=== PATIENT | male | born 1945 | race Caucasian/White ===

== ENCOUNTER 2021-01-09 09:03 | Day surgery (SDC) | payer OTHER, SELFPAY ==
[2020-12-18 08:20] VITALS: BMI 30.1
--- NOTE | 2021-01-09 09:25 | HP.PCM_ITS ---
History and Physical Date of Admission: 01/09/21 Intake Visit Reasons: CSCOPE Chief Complaint: c-scope, hx polyps Certified Optician Required: No Is patient in pain?: No Allergies No Known Allergies Allergy (Verified 12/18/20 08:16) Medications cyclobenzaprine 5 mg PO TID PRN #10 tablet 10/20/15 [Rx Confirmed 12/18/20] metoprolol tartrate 12.5 mg PO BID 10/20/15 [History Confirmed 12/18/20] potassium chloride [K-Dur] 20 meq PO DAILY 10/20/15 [History Confirmed 12/18/20] alogliptin 25 mg tablet 25 mg PO DAILY 12/18/20 [History Confirmed 12/18/20] atorvastatin 80 mg tablet 80 mg PO QHS 12/18/20 [History Confirmed 12/18/20] empagliflozin 25 mg tablet 25 mg PO QAM 12/18/20 [History Confirmed 12/18/20] glipizide 5 mg tablet 10 mg PO BIDAC tab 12/18/20 [History Confirmed 12/18/20] lisinopril 20 mg-hydrochlorothiazide 12.5 mg tablet 1 tab PO DAILY 12/18/20 [History Confirmed 12/18/20] sulfacetamide sodium 10 % shampoo ea TOPICAL 12/18/20 [History Confirmed 12/18/20] PFSH Medical History (Updated 12/18/20 @ 08:[address] Harlan Foster MD) Allergic rhinitis B12 deficiency Back pain CKD (chronic kidney disease), stage II Hyperlipidemia Neuropathy Rosacea Vitamin D deficiency Surgical History (Updated 12/18/20 @ 08:14 by Courtney Phan) History of cholecystectomy History of colonoscopy (~05/2017) Family History (Updated 12/18/20 @ 08:15 by Courtney Phan) Brother Diabetes Cancer CHF (congestive heart failure) Social History Smoking Status: Never smoker HPI HPI HPI: IBIS GREEN, is a 75 M who presents to the office today for surgical consultation because of a personal history of colon polyps. 75-year-old gentleman. He has had previous colonoscopies performed via the [facility]. On this occasion he prefers to have his procedure performed locally. He states that on previous colonoscopies he has had colonic polyps. He thinks that on the most recent endoscopy that he had polyps but that were not removed. He is on a low-dose aspirin but no other anticoagulation. He otherwise is enjoying a good quality of life. He denies any cardiac disease or pulmonary disease. He does have diabetes but is noninsulin requiring. I have evidence of a previous colonoscopy May 17, 2017 performed in [facility] at the [facility]. A single bleeding smooth broad-based polyp found in the rectum was removed by snare cautery. Clips were applied to control bleeding. Diverticulosis was identified. The patient denies family history of colon cancer ROS General General: Yes weight change; No appetite, fatigue, colon cancer, breast cancer or weakness HEENT HEENT: No difficulty swallowing, eye injury, eye surgery, swollen glands or hoarseness Endo Endocrine: Yes diabetes mellitus; No thyroid disease, thyroid cancer, Hair loss, heat intolerance or cold intolerance Musc Musculoskeletal: Yes back problems; No arthritis, rheumatoid arthritis, gout or joint pain Cardio Cardiovascular: Yes high blood pressure; No murmur, pacemaker, heart disease, atrial fibrillation, heart attack, heart stent, palpitations, shortness of breat with exertion or chest pain Psych Psychiatric: No depression, anxiety or hearing voices Resp Respiratory: No shortness of breath, No sleep apnea, No cough, No COPD, No asthma, No emphysema and No wheezing Gastro Gastrointestinal: No abdominal pain, No nausea or vomiting, No diarrhea, No constipation, No blood in stool, No acid reflux, No hemorrhoids, No ulcers, No gallbladder problem and No black,tarry stools Yannick Hematologic: No blood thinners, No blood disorders, No bleeding, No anemia and No blood clots Neuro Neurologic: No weakness Exam Const General: cooperative, healthy appearing, comfortable and no acute distress Nutritional Appearance: average body habitus Orientation: awake [facility] Head: normal to inspection Eyes General: appearance normal, both eyes and all related structures Neck Neck: normal visual inspection Resp Effort & Inspection: normal respiratory effort Auscultation: clear to auscultation bilaterally Cardio Rate: regular rate Rhythm: regular rhythm GI Palpation: soft and no hepatosplenomegaly Auscultation: normal bowel sounds Musc Cervical Spine: normal cervical lordosis Neuro General: patient alert and patient awake Extrem General: no calf tenderness bilaterally Psych Appearance: grossly normal Thought Process: normal COVID (Procedure Consent) Procedure Criteria Procedure Criteria: Yes Elective The surgeon/proceduralist and patient have discussed in detail the risk of exposure to and/or potential harm posed by the COVID-19 virus with having a surgery/procedure at this time versus the risk of delaying the surgery/procedure. It is not possible to know either the risk of delaying the surgery or procedure or chance of getting an infection with perfect accuracy, but a joint decision was made between the patient and the surgeon/proceduralist to proceed at this time with the scheduled surgery/procedure as indicated on the consent form. Assessment and Plan Assessment and Plan (1) Personal history of colonic polyps: Status: Acute Plan Details Additional Comments: 75-year-old gentleman who was kindly referred from the [facility] for consideration of surveillance colonoscopy because of his personal history of colon polyps. As noted his most recent colonoscopy was July 2016 where a rectal polyp was removed with snare and clip application. I propose for him a colonoscopy with possible biopsy or polypectomy as indicated. He is aware of the technique, benefit, risk, alternatives. He has had an opportunity to ask and have questions answered. We will schedule procedure at his discretion. 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 Mehdi Foster,II Copy: [facility] Harlan Foster M.D., F.A.C.S. I have re-examined the patient. There are no clinical changes since date of exam.
[2021-01-09 09:27] VITALS: BP 145/85; PULSE 58; RESP 16; TEMP 36.4; O2SAT 99; BMI 32.5
[2021-01-09] MEDS: Lactated Ringers 1,000 ML 100 ML IV (09:48)
[2021-01-09 10:31] LABS: Bedside Glucose 221 mg/dL (70-110)
[2021-01-09 11:00] VITALS: BP 116/80; BP 145/85; PULSE 59; RESP 18; TEMP 36.5; O2SAT 97
--- NOTE | 2021-01-09 11:03 | OP.CCLET_ITS ---
01/09/2021 [facility] Re : Colonoscopy procedure for [facility] This procedure was performed on Saturday, January 09, 2021. My impressions and recommendations are as follows: Impressions : - Hemorrhoids found on perianal exam. - Diverticulosis in the sigmoid colon. - The examination was otherwise normal. - No specimens collected. Recommendations : - Discharge patient to home. - Resume previous diet. - Continue present medications. - Repeat colonoscopy is not recommended due to current age (66 years or older) for screening purposes. My findings are described in the full procedure note, which is enclosed. If I can be of further assistance, please feel free to contact me at Doctor phone number(s): Work: . Sincerely, Harlan Foster MD 01/09/2021 11:02:16 AM This report has been signed electronically.
--- NOTE | 2021-01-09 11:03 | OP.COLON_ITS ---
Patient Name: Sylvester Woodward Procedure Date: 01/09/2021 10:32 AM Date of : 1945 Age: 75 Procedure: Colonoscopy Indications: High risk colon cancer surveillance: Personal history of colonic polyps Providers: Harlan Foster MD Referring MD: Harlan Foster MD Medicines: See the Anesthesia note for documentation of the administered medications Patient Profile: Last Colonoscopy: May 2017. Complications: No immediate complications. Procedure: Pre-Anesthesia Assessment: - Prior to the procedure, a History and Physical was performed, and patient medications and allergies were reviewed. The patient's tolerance of previous anesthesia was also reviewed. The risks and benefits of the procedure and the sedation options and risks were discussed with the patient. All questions were answered, and informed consent was obtained. Prior Anticoagulants: The patient has taken no previous anticoagulant or antiplatelet agents. ASA Grade Assessment: II - A patient with mild systemic disease. After reviewing the risks and benefits, the patient was deemed in satisfactory condition to undergo the procedure. After I obtained informed consent, the scope was passed under direct vision. Throughout the procedure, the patient's blood pressure, pulse, and oxygen saturations were monitored continuously. The Colonoscope was introduced through the anus and advanced to the cecum, identified by appendiceal orifice and ileocecal valve. The colonoscopy was performed without difficulty. The patient tolerated the procedure well. The quality of the bowel preparation was good. The ileocecal valve and the appendiceal orifice were photographed. Scope In: 10:42:58 AM Scope Withdrawal Time 0 hours 8 minutes 14 seconds Scope Out: 10:56:51 AM Total Procedure Duration Time 0 hours 13 minutes 53 seconds Findings: Hemorrhoids were found on perianal exam. Scattered diverticula were found in the sigmoid colon. The exam was otherwise without abnormality. Impression: - Hemorrhoids found on perianal exam. - Diverticulosis in the sigmoid colon. - The examination was otherwise normal. - No specimens collected. Recommendation: - Discharge patient to home. - Resume previous diet. - Continue present medications. - Repeat colonoscopy is not recommended due to current age (66 years or older) for screening purposes. Procedure Code(s): --- Professional --- 27740, Colonoscopy, flexible; diagnostic, including collection of specimen(s) by brushing or washing, when performed (separate procedure) Diagnosis Code(s): --- Professional --- Z86.010, Personal history of colonic polyps K64.9, Unspecified hemorrhoids K57.30, Diverticulosis of large intestine without perforation or abscess without bleeding CPT copyright 2017 [employer]. All rights reserved. The codes documented in this report are preliminary and upon unix administrator review may be revised to meet current compliance requirements. Harlan Foster MD 01/09/2021 11:02:16 AM This report has been signed electronically. Number of Addenda: 0 Note Initiated On: 01/09/2021 10:32 AM
[2021-01-09 11:05] VITALS: BP 116/79; BP 145/85; PULSE 60; RESP 18; O2SAT 97
[2021-01-09 11:10] VITALS: BP 125/83; BP 145/85; PULSE 58; RESP 18; O2SAT 98
[2021-01-09 11:15] VITALS: BP 120/83; BP 125/87; BP 145/85; PULSE 57; PULSE 61; RESP 18; TEMP 36.8; O2SAT 97; O2SAT 98
[2021-01-09 11:39] VITALS: BP 145/85
== END 2021-01-09 11:43 ==
LOC: EN 09:03 → AC 09:12
PROVIDERS: Referring Provider Surgery; Visit Provider Surgery
PROC: 0DJD8ZZ Inspection of Lower Intestinal Tract, Via Natural or Artificial Opening Endoscopic (ICD-10-PCS; CPT 45378; principal; 2021-01-09 10:25)
DX: Z12.11 Encounter for screening for malignant neoplasm of colon (principal); K57.30 Diverticulosis of large intestine without perforation or abscess without bleeding; K64.9 Unspecified hemorrhoids; Z87.19 Personal history of other diseases of the digestive system; I12.9 Hypertensive chronic kidney disease with stage 1 through stage 4 chronic kidney disease, or unspecified chronic kidney disease; E11.22 Type 2 diabetes mellitus with diabetic chronic kidney disease; N18.2 Chronic kidney disease, stage 2 (mild); E78.5 Hyperlipidemia, unspecified; Z79.899 Other long term (current) drug therapy
CPT/HCPCS: 45378; 82962; 87426; C9803; J7120; J2405

== ENCOUNTER → 2022-10-05 | Outpatient (CLI) | payer OTHER, SELFPAY ==
--- NOTE | 2022-10-05 08:55 | US_ITS ---
STUDY: ABDOMINAL ULTRASOUND - ELASTOGRAPHY REASON FOR VISIT: Male, 77 years old. Fatty infiltration of the liver. TECHNIQUE: Liver stiffness measurements were obtained on a Senscient RS 85 ultrasound machine using a CA 1-7 probe following the SRU guidelines. 3 measurements were obtained using a 2-D-SWE method. TheIQR/M was 12% suggesting a quality data set. TECHNICAL QUALITY: Adequate. COMPARISON: Comparison is made with prior study done earlier today. FINDINGS: Liver: Fatty infiltration of the liver. Median liver stiffness measured 11 kPa. 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 Electronically Signed: Giuseppe Edmonds MD at 10:17 EDT ,
== END | disposition home or self-care (01) ==
LOC: US 08:52
DX: R94.5 Abnormal results of liver function studies (principal)
CPT/HCPCS: 76705; 76981

== ENCOUNTER → 2023-08-31 | Outpatient (CLI) | payer OTHER, SELFPAY ==
--- NOTE | 2023-08-31 08:44 | US_ITS ---
STUDY: ABDOMINAL ULTRASOUND - RIGHT UPPER QUADRANT REASON FOR VISIT: Male, 78 years old FATTY LIVER TECHNIQUE: Ultrasound evaluation of the right upper quadrant was performed with real-time and static merino-scale imaging. TECHNICAL QUALITY: Adequate. COMPARISON: Comparison is made with prior study of October 05, 2022. FINDINGS: Liver: The liver is enlarged and measures 19.7 cm. There is increased echogenicity consistent with fatty infiltration. The bile ducts are within normal limits. There is hepatic color flow. The direction of portal flow is hepatopetal. There is no demonstrated mass lesion. Gallbladder: The patient is status post cholecystectomy. Common Bile Duct (C.B.D.): The common bile duct measures 6 mm. Pancreas: Normal size of the head, body and tail of the pancreas. There is normal echogenicity of the pancreas. There is no demonstrated pancreatic mass or cyst. Right Kidney: Normal size of the right kidney. The right kidney measures 11.3 cm x 4.9 cm x 5.5 cm. Normal renal cortex. The right cortex measures 1.3 cm. There is no demonstrated renal mass or cyst. There is no right hydronephrosis. US/Liver IMPRESSION: Hepatomegaly and fatty infiltration of the liver. The patient status post cholecystectomy. Electronically Signed: Giuseppe Edmonds MD at 10:36 EST ,
--- OUTSIDE RECORDS SUMMARY | 2023-08-31 09:04 | XMS RPT_ITS | CCD ---
Author Name Unknown Address [address] [place] [address] Organization [facility] Care Team Providers Care Maintenance Worker Municipal Name Role Phone No, Pcp (Historical) Primary Care Provider SOLANGE Hermosillo Attending Unavailable Allergies Allergy Classification Reported Allergen(s) Allergy Type Date of Onset Reaction(s) Facility (1 source) [facility] [Other] Propensity to adverse reactions 5 Vomiting [facility] Work Phone: (1 source) OTHER; Translations: [OTHER] Propensity to adverse reactions (disorder) [address] [place] [address] Repository Medications Current Medications Medication Drug Class(es) Dates Sig (Normalized) Sig (Original) doxycycline monohydrate 100 mg oral tablet (1 source) Tetracycline-clas s Drug Start: 03-30-2023 End: 04-09-2023 take 1 tablet by mouth twice daily doxycycline monohydrate 100 mg tablet Indications: Skin lesion Take 1 tablet by mouth twice daily for 10 days. 20 tablet 0 03/30/2023 04/09/2023 Active Completed/Discontinued Medications Medication Drug Class(es) Dates Sig (Normalized) Sig (Original) aspirin 81 mg chewable tablet (1 source) Platelet Aggregation Inhibitor, Nonsteroidal Anti-inflammatory Drug Start: 10-30-2004 take 1 tablet by mouth once daily CHRISTIANA CHIL[employer] ASPIRIN 81 MG ORAL CHEW Take one(1) tablet daily. 0 10/30/2004 Active Problems Problem Classification Problem Date Documented Da te Episodic/Chronic Other skin disorders (1 source) Skin lesion; Translations: [Disorder of the skin and subcutaneous tissue, unspecified] 03-30-2023 Episodic Superficial injury; contusion (1 source) Tick bite; Translations: [Insect bite (nonvenomous), right hip, initial encounter] 09-20-2023 Episodic Results Test Name Value Interpretation Reference Range Facil ity Vital Signs Date Time Vital Sign Value Performing Clinician Marcos mcdonald 03-30-2023 08:28-0400 Body temperature 98.01 [degF] Solange Baker NET DEVELOPMENT MANAGER.WIRELESS FIELD TECHNICIAN Work Phone: [facility] 03-30-2023 08:28-0400 Body weight 84.01 kg Solange Baker NET DEVELOPMENT MANAGER.WIRELESS FIELD TECHNICIAN Work Phone: [facility] 03-30-2023 08:28-0400 Diastolic blood pressure 80 mm[Hg] Solange Baker NET DEVELOPMENT MANAGER.WIRELESS FIELD TECHNICIAN Work Phone: [facility] 03-30-2023 08:28-0400 Heart rate 70 /min Solange Baker NET DEVELOPMENT MANAGER.WIRELESS FIELD TECHNICIAN Work Phone: [facility] 03-30-2023 08:28-0400 Respiratory rate 18 /min Solange Baker NET DEVELOPMENT MANAGER.WIRELESS FIELD TECHNICIAN Work Phone: [facility] 03-30-2023 08:28-0400 SaO2% (BldA) [Mass fraction] 95 % Solange Baker NET DEVELOPMENT MANAGER.WIRELESS FIELD TECHNICIAN Work Phone: [facility] 03-30-2023 08:28-0400 Systolic blood pressure 130 mm[Hg] Solange Baker NET DEVELOPMENT MANAGER.WIRELESS FIELD TECHNICIAN Work Phone: [facility] Encounters Encounter Date Encounter Type Care Provider Facility Start: 03-30-2023 End: 03-30-2023 ambulatory SOLANGE KING Facility:[facility] Start: 03-30-2023 End: 03-30-2023 Patient encounter procedure Solange Baker APRN.WIRELESS FIELD TECHNICIAN Work Phone: [facility] Plan of Treatment Date Care Activity Detail Author Start: 03-11-2023 Influenza vaccination Influenza Vacc ine (#1) [facility] Start: 07-11-2022 Advance Directive Discussion Advance Directive Discussion [facility] Start: 07-11-2022 Depression Assessment Depression Ass essment [facility] Start: 06-28-2019 Urine microalbumin profile DTaP,Tdap,Td Vaccine (2 - Td or Tdap) [facility] Start: 2010 Pneumococcal Vaccine : 65+ (1 - PCV) Pneumococcal Vaccine: 65+ (1 - PCV) [facility] Start: 1995 Shingrix Vaccine (1 of 2) Shingrix V accine (1 of 2) [facility] Start: 1990 Diabetes Screening Diabetes Screenin g [facility] Start: 1963 Hepatitis C Screening Hepatitis C Sc pa [facility] Start: 1945 Covid-19 Vaccine (#1) Covid-19 Vacci ne (#1) [facility] Immunizations Immunization Date Immunization Notes Care Provider Fa sheri 07-27-2017 influenza virus vaccine, unspecified formulation Solange Baker APRN.WIRELESS FIELD TECHNICIAN Work Phone: [facility] 06-28-2009 tetanus toxoid, redu lewis diphtheria toxoid, and acellular pertussis vaccine, adsorbed Solange Baker APRN.WIRELESS FIELD TECHNICIAN Work Phone: [facility] Work Phone: Payers Date Payer Category Payer Unknown [facility] [employer] O [id number] 2021-Present [phone] [address] [place] [address] O [id number] 2021 Unknown [id number] Social History Date Type Detail Facility Start: 03-30-2023 [facility] End: 10-30-1964 History of tobacco use Current smoker [facility] End: 10-30-1964 History of tobacco use Cigarette Smoker [facility] Start: 03-30-2023 Alcohol intake Current non-dr manager diversity of alcohol (finding) [facility] Start: 03-30-2023 History of Social function [facility] Start: 03-30-2023 Tobacco use panel [facility] Start: 1945 Sex Assigned At Not on file C [facility] Progress note 03-30-2023 Note Date & Type Note Facility 03-30-2023 Note HNO ID: [id number] Author: Solange Baker APRN.WIRELESS FIELD TECHNICIAN Service: ? Author Type: Nurse Practitioner Type: Progress Notes Filed: 03/30/2023 9:01 AM Note Text: Subjective HPI HPI Ibis Woodward is a 77 year old male who presents today for CC of tick bite, lesion, pain. This started 1 day ago, tick was attached for possible 3 days. Has tried nothing for relief. Symptoms are worsened by nothing. Risk factors was recently out in [place]. Denies cp/sob, fever, body aches, flu like symptoms. .Patient presents with: Tick Bite: Right back of thigh x 1 day No past medical history on file. No past surgical history on file. ALLERGIES [employer] [Other] MEDICATIONS semaglutide (OZEMPIC) 2 mg/dose (8 mg/3 mL) pen injector Inject 2 mg subcutaneously one time a week. METFORMIN HCL (METFORMIN ORAL) Take 2 Caps-Full by mouth twice daily. MULTIVITAMIN ORAL TAB Take one(1) tablet daily. CHRI[employer]IANA [employer]IL[employer]ENS ASPIRIN 81 MG ORAL CHEW Take one(1) tablet daily. ZESTRIL 10 MG ORAL TAB Take one(1) tablet twice daily. LOPRESSOR 50 MG ORAL TAB Take 25mg (half of a 50mg tablet) twice daily. GENPRIL 200 MG ORAL TAB as necessary NASACORT AQ 55 MCG/ACTUATION NASL SPRA Take daily at bedtime. No family history on file. Social History Tobacco Use Smoking status: Former Types: Cigarettes Quit date: 10/30/1964 Years since quittin.4 Substance Use Topics Alcohol use: No ROS Objective Blood pressure 130/80, pulse 70, temperature 36.7 ?C (98 ?F), resp. rate 18, weight 84 kg (185 lb 3.2 oz), SpO2 95 %. Physical Exam Constitutional: General: He is not in acute distress. Appearance: He is not toxic-appearing or diaphoretic. HENT: Head: Normocephalic and atraumatic. Cardiovascular: Rate and Rhythm: Normal rate and regular rhythm. Heart sounds: Normal heart sounds, S1 normal and S2 normal. Pulmonary: Effort: Pulmonary effort is normal. Breath sounds: Normal breath sounds. Skin: Neurological: Mental Status: He is alert and oriented to person, place, and time. Gait: Gait is intact. ASSESSMENT/PLAN: 1. Tick bite of right hip, initial encounter - ICD9: 916.4, E906.4, ICD10: S70.261A, W57.XXXA (primary diagnosis) 2. Skin lesion - ICD9: 709.9, ICD10: L98.9 Cover with doxy F/u with pcp for any new s/s. Urgent f/u for severe s/s. - DOXYCYCLINE MONOHYDRATE 100 MG TABLET Solange Baker APRN.CNP [facility] History of Present illness Narrative 03-30-2023 Solange Baker APRN.YUDITH - 03/30/2023 8:36 AM EDT Note Date & Type Note Facility 03-30-2023 History of Presen t illness Narrative Images from the original note were not included. Subjective HPI HPI Ibis Woodward is a 77 year old male who presents today for CC of tick bite, lesion, pain. This started 1 day ago, tick was attached for possible 3 days. Has tried nothing for relief. Symptoms are worsened by nothing. Risk factors was recently out in [place]. Denies cp/sob, fever, body aches, flu like symptoms. .Patient presents with: Tick Bite: Right back of thigh x 1 day No past medical history on file. No past surgical history on file. ALLERGIES [employer]o [Other] MEDICATIONS semaglutide (OZEMPIC) 2 mg/dose (8 mg/3 mL) pen injector Inject 2 mg subcutaneously one time a week. METFORMIN HCL (METFORMIN ORAL) Take 2 Caps-Full by mouth twice daily. MULTIVITAMIN ORAL TAB Take one(1) tablet daily. CHRISTIANA [employer]ILDRENS ASPIRIN 81 MG ORAL CHEW Take one(1) tablet daily. ZESTRIL 10 MG ORAL TAB Take one(1) tablet twice daily. LOPRESSOR 50 MG ORAL TAB Take 25mg (half of a 50mg tablet) twice daily. GENPRIL 200 MG ORAL TAB as necessary NASACORT AQ 55 MCG/ACTUATION NASL SPRA Take daily at bedtime. No family history on file. Social History Tobacco Use Smoking status: Former Types: Cigarettes Quit date: 10/30/1964 Years since quittin.4 Substance Use Topics Alcohol use: No ROS Objective Blood pressure 130/80, pulse 70, temperature 36.7 C (98 F), resp. rate 18, weight 84 kg (185 lb 3.2 oz), SpO2 95 %. Physical Exam Constitutional: General: He is not in acute distress. Appearance: He is not toxic-appearing or diaphoretic. HENT: Head: Normocephalic and atraumatic. Cardiovascular: Rate and Rhythm: Normal rate and regular rhythm. Heart sounds: Normal heart sounds, S1 normal and S2 normal. Pulmonary: Effort: Pulmonary effort is normal. Breath sounds: Normal breath sounds. Skin: Neurological: Mental Status: He is alert and oriented to person, place, and time. Gait: Gait is intact. ASSESSMENT/PLAN: 1. Tick bite of right hip, initial encounter - ICD9: 916.4, E906.4, ICD10: S70.261A, W57.XXXA (primary diagnosis) 2. Skin lesion - ICD9: 709.9, ICD10: L98.9 Cover with doxy F/u with pcp for any new s/s. Urgent f/u for severe s/s. - DOXYCYCLINE MONOHYDRATE 100 MG TABLET Solange Baker APRN.WIRELESS FIELD TECHNICIAN documented in this encounter [facility] Evaluation note Note Date & Type Note Facility documented in this encounter [facility] Summary Purpose Family History No Family History Records Found Advance Directives No Advanced Directives Records Found Additional Source Comments Source Comments (unrecognize d section and content) In the event this informatio n is protected by the Federal Confidentiality of Alcohol and Drug Abuse Patient Records regulations: The Federal rules restrict any use of the information to criminally investigate or prosecute any alcohol or drug abuse patient.[facility] Reason for Visit (unrecogniz ed section and content) Care Teams (unrecognized sec tion and content) (unrecognized sect ion and content) No Status Records Found INFORMATION SOURCE (unrecogn ized section and content) FOR RECORDS PERTAINING TO PATIENTS WHO ARE OR HAVE BEEN ENROLLED IN A CHEMICAL DEPENDENCY/SUBSTANCEABUSE PROGRAM, SOME INFORMATION MAY BE OMITTED. This clinical summary was aggregated from multiple sources. Caution should be exercised in using it in the provision of clinical care. This summary normalizes information from multiple sources, and as a consequence, information in this document may materially change the coding, format and clinical context of patient data. In addition, data may be omitted in some cases. CLINICAL DECISIONS SHOULD BE BASED ON THE PRIMARY CLINICAL RECORDS. [employer] [facility]. provides no warranty or guarantee of the accuracy or completeness of information in this document.
== END | disposition home or self-care (01) ==
LOC: US 08:42
DX: K46.0 Unspecified abdominal hernia with obstruction, without gangrene (principal)
CPT/HCPCS: 76705

== ENCOUNTER → 2024-05-29 | Outpatient (CLI) | payer OTHER, SELFPAY ==
--- NOTE | 2024-05-29 09:46 | US_ITS ---
STUDY: ABDOMINAL ULTRASOUND - RIGHT UPPER QUADRANT REASON FOR VISIT: Male, 79 years old Nonalcoholic steatohepatitis ([place]ARCANO) TECHNIQUE: Ultrasound evaluation of the right upper quadrant was performed with real-time and static merino-scale imaging. TECHNICAL QUALITY: Adequate. COMPARISON: None. FINDINGS: Liver: The liver measures 19.6 cm. There is increased echogenicity consistent with fatty infiltration. The bile ducts are within normal limits. There is hepatic color flow. The direction of portal flow is hepatopetal. There is no demonstrated mass lesion. Gallbladder: The patient is status post cholecystectomy. s. Common Bile Duct (C.B.D.): The common bile duct measures 6 mm. Pancreas: Normal size of the head, body and tail of the pancreas. There is normal echogenicity of the pancreas. There is no demonstrated pancreatic mass or cyst. Right Kidney: Normal size of the right kidney. The right kidney measures 11.0 cm. Normal renal cortex. The right cortex measures 1.6 cm. There is no demonstrated renal mass or cyst. There is no right hydronephrosis. US/Liver IMPRESSION: Status post cholecystectomy with fatty infiltration of the liver. Electronically Signed: Luis Alfredo Payton MD at 11:26 EST ,
== END | disposition home or self-care (01) ==
LOC: US 09:42
PROVIDERS: Referring Provider Nurse Practitioner Adult Health; Visit Provider Nurse Practitioner Adult Health
DX: K75.81 Nonalcoholic steatohepatitis (NASH) (principal)
CPT/HCPCS: 76705

== ENCOUNTER 2025-01-13 12:30 | Inpatient (IN) | payer OTHER, SELFPAY ==
[2025-01-13] VITALS (26 sets, daily range): BP systolic 122–177; BP diastolic 58–135; PULSE 68–111; RESP 18–42; TEMP 38.6–40.5; O2SAT 91–99; BMI 30.6; BMI 28.0
--- OUTSIDE RECORDS SUMMARY | 2025-01-13 12:36 | XMS RPT_ITS | CCD ---
Author Organization [place] [facility] Care Team Providers Care Carbide Grinder Name Role Phone No, Pcp (Historical) Primary Care Provider Unava ilable Allyn Jo Attending [facility]available [facility] [place] [facility] Unavailable Allyn Jo Referring Unavailable [facility] [place] [facility] Unavailable PRATIMA SOLORIO Referring Unavailable PRATIMA SOLORIO Attending Unavailable Allergies Allergy Classification Reported Allergen(s) Allergy Type Date of Onset Reaction(s) Facility (1 source) agresso [Other] Propensity to adverse reactions 5 Vomiting [facility] Work Phone: (1 source) Apple extract Drug Allergy 4 Swelling, Other: See Comments [facility] (1 source) Aspirin / Dipyridamole Drug Allergy 7 Vomiting, Other: See Comments [facility] (1 source) OTHER; Translations: [OTHER] Propensity to adverse reactions (disorder) 5 [facility] Main [place] Repository Medications Current Medications Medication Drug Class(es) Dates Sig (Normalized) Sig (Original) aspirin 81 mg chewable tablet (2 sources) Platelet Aggregation Inhibitor, Nonsteroidal Anti-inflammatory Drug Start: 10-30-2004 take 1 tablet by mouth once daily [facility] ASPIRIN 81 MG ORAL CHEW Take one(1) tablet daily. 0 10/30/2004 Active Comment on above: Take one(1) tablet d aily. calcium carbonate 1250 mg / cholecalciferol 200 unt oral tablet (1 source) Vitamin D Start: 08-06-2005 take 1 tablet by mouth once daily rgovrvy-lhinmpipp-ye tamin D3 500 mg-5 mcg (200 unit) per tablet Take 1 tablet by mouth once daily. 08/06/2005 Active cholecalciferol 0.025 mg oral tablet (1 source) Vitamin D Start: 01-25-2017 take 1 tablet by mouth once daily cholecalciferol (VITAMIN D3) 1,000 unit tab tablet Take 1,000 Units by mouth once daily. 01/25/2017 Active doxycycline monohydrate 100 mg oral capsule (2 sources) Tetracycline-clas s Drug Start: 04-27-2024 End: 04-27-2024 take 2 capsules by mouth once doxycycline monohydrate (MONODOX) 100 mg capsule Indications: Tick bite of abdomen, initial encounter Take 2 capsules by mouth one time only for 1 dose. 2 capsule 04/27/2024 04/27/2024 Active Start: 03-30-2023 End: 04-09-2023 take 1 tablet by mouth twice daily doxycycline monohydrate 100 mg tablet Indications: Skin lesion Take 1 tablet by mouth twice daily for 10 days. 20 tablet 0 03/30/2023 04/09/2023 Active Comment on above: Take 1 tablet by nisha th twice daily for 10 days. garlic preparation 1000 mg oral capsule (1 source) Non-Standardized Food Allergenic Extract Start: take 1 capsule by mouth once daily Garlic (GARLIC OIL) 1,000 mg cap Take 1 Each by mouth once daily. 05/20/2022 Active hydroCHLOROthiazide 12.5 mg / lisinopril 20 mg oral tablet (1 source) Thiazide Diuretic, Angiotensin Converting Enzyme Inhibitor Start: take 1 tablet by mouth once daily lisinopril-hydroCH LOROthiazide (ZESTORETIC) 20-12.5 mg per tablet Take 1 tablet by mouth once daily. 04/29/2023 Active ibuprofen 200 mg oral tablet (2 sources) Nonsteroidal Anti-inflammatory Drug Start: GENPRIL 200 MG ORAL TAB as necessary 0 10/30/2004 Active Comment on above: as necessary lisinopril 10 mg oral tablet (2 sources) Angiotensin Converting Enzyme Inhibitor Start: End: take 1 tablet by mouth twice daily ZESTRIL 10 MG ORAL TAB Take one(1) tablet twice daily. 0 10/30/2004 04/27/2024 Discontinued Comment on above: Take one(1) tablet t wice daily. metFORMIN (2 sources) Biguanide take 2 capsules by mouth twice daily METFORMIN HCL (METFORMIN ORAL) Take 2 Caps-Full by mouth twice daily. Active take 2 capsules by mouth twice d aily METFORMIN HCL (METFORMIN ORAL) Take 2 Caps-Full by mouth twice daily. 0 Active Comment on above: Take 2 Caps-Full by mouth twice daily. metoprolol tartrate 50 mg oral tablet (2 sources) beta-Adrenergic Kyle Start: 10-31-19 05 LOPRESSOR 50 MG ORAL TAB Take 25mg (half of a 50mg tablet) twice daily. 0 10/30/2004 Active Comment on above: Take 25mg (half of a 50mg tablet) twice daily. MULTIVITAMIN ORAL TAB (2 sources) Start: 10-31-19 05 take 1 tablet by mouth once daily MULTIVITAMIN ORAL TAB Take one(1) tablet daily. 0 10/30/2004 Active Comment on above: Take one(1) tablet d aily. Cdbqp-4-CBG-EPA-Fish Oil (FISH OIL) 1,000 (120-180) mg cap (1 source) Start: 11-28-19 24 take 1 capsule by mouth twice daily Ovcpz-1-JEL-EPA-Fish Oil (FISH OIL) 1,000 (120-180) mg cap Take 1 capsule by mouth two times a day. 11/28/2023 Active semaglutide (OZEMPIC) 2 mg/dose (8 mg/3 mL) pen injector (2 sources) Start: 11-09-19 23 inject 2 mg by subcutaneous injection every week semaglutide (OZEMPIC) 2 mg/dose (8 mg/3 mL) pen injector Inject 2 mg subcutaneously one time a week. 11/08/2022 Active Start: 11-08-2022 inject 2 mg by subcu taneous injection every week semaglutide (OZEMPIC) 2 mg/dose (8 mg/3 mL) pen injector Inject 2 mg subcutaneously one time a week. 0 11/08/2022 Active Comment on above: Inject 2 mg subcutan eously one time a week. triamcinolone acetonide 0.055 mg/actuat metered dose nasal spray (2 sources) Corticosteroid Start: 10-30-2004 NASACORT AQ 55 MCG/ACTUATION NASL SPRA Take daily at bedtime. 0 10/30/2004 Active Comment on above: Take daily at bedtim e. Problems Problem Classification Problem Date Documented Date Episodic/Chronic Hepatitis (1 source) Nonalcoholic steatohepatitis (MARCANO); Translations: [Nonalcoholic steatohepatitis (MARCANO)] Onset: 06-28-2024 Chronic Other liver diseases (1 source) Fatty (change of) liver, not elsewhere classified; Translations: [Fatty (change of) liver, not elsewhere classified] Onset: 09-05-2023 Chronic Other skin disorders (1 source) Skin lesion; Translations: [Disorder of the skin and subcutaneous tissue, unspecified] 03-30-2023 Episodic Superficial injury; contusion (2 sources) Tick bite; Translations: [Insect bite (nonvenomous), right hip, initial encounter] 03-30-2023 Episodic Results Test Name Value Interpretation Reference Range Facil darek Keen 05-29-2024 Liver [facility] Imaging Services [address] [place], [place] [id number] Liver MR#: [id number] Acct: [id number] Name: IBIS WOODWARD Rep #: [id number] : 1945 M 79 From: Luis Alfredo Payton MD PCP: [facility] Status: REG CLI Study: Liver Date of Exam: 05/29/24 Exam# [id number] Ordering Dr: Allyn Jo CARBONIZER- C [id number] STUDY: ABDOMINAL ULTRASOUND - RIGHT UPPER QUADRANT REASON FOR VISIT: Male, 79 years old Nonalcoholic steatohepatitis ([place]ARCANO) TECHNIQUE: Ultrasound evaluation of the right upper quadrant was performed with real-time and static merino-scale imaging. TECHNICAL QUALITY: Adequate. COMPARISON: None. FINDINGS: Liver: The liver measures 19.6 cm. There is increased echogenicity consistent with fatty infiltration. The bile ducts are within normal limits. There is hepatic color flow. The direction of portal flow is hepatopetal. There is no demonstrated mass lesion. Gallbladder: The patient is status post cholecystectomy. s. Common Bile Duct (C.B.D.): The common bile duct measures 6 mm. Pancreas: Normal size of the head, body and tail of the pancreas. There is normal echogenicity of the pancreas. There is no demonstrated pancreatic mass or cyst. Right Kidney: Normal size of the right kidney. The right kidney measures 11.0 cm. Normal renal cortex. The right cortex measures 1.6 cm. There is no demonstrated renal mass or cyst. There is no right hydronephrosis. US/Liver IMPRESSION: Status post cholecystectomy with fatty infiltration of the liver. Electronically Signed: Luis Alfredo Payton MD at 11:26 EST , CC: WALTER Jo; [facility] Yeast Culture Developer: [facility] Office Visit (UCWSTR ) IBIS WOODWARD ([id number]) 1945 M Date Time Provider Department 04/27/24 7:30 AM GOLD WILEY [facility] During your visit today, we recorded the following information about you: Pulse Respiration Blood pressure Weight 75/minute 18/minute 120/76 80 kg Gold Wiley MD 04/27/2024 8:01 AM Signed Patient presents with: Tick Bite: Left side x 1 day, redness, some soreness HPI: Skin Lesion: Location: left lower abdomen Duration: noticed yesterday. Unknown duration. Cut a shrub in [place] 4 days ago. Has mowed his own yard this week. Has cats and dogs at home. Pruritis/Pain: hurts Drainage/blister/pustul e/ulceration: red around a tick. Denies fever, myalgia, arthralgia, rash, malaise. Treatment: tried to remove MEDICATIONS: cholecalciferol (VITAMIN D3) 1,000 unit tab tablet Take 1,000 Units by mouth once daily. Cvscz-8-TSF-EPA-Fish Oil (FISH OIL) 1,000 (120-180) mg cap Take 1 capsule by mouth two times a day. lisinopril-hydroCHLOROt hiazide (ZESTORETIC) 20-12.5 mg per tablet Take 1 tablet by mouth once daily. yamsvcx-ydxfzcogo-mogkb in D3 500 mg-5 mcg (200 unit) per tablet Take 1 tablet by mouth once daily. Garlic (GARLIC OIL) 1,000 mg cap Take 1 Each by mouth once daily. semaglutide (OZEMPIC) 2 mg/dose (8 mg/3 mL) pen injector Inject 2 mg subcutaneously one time a week. METFORMIN HCL (METFORMIN ORAL) Take 2 Caps-Full by mouth twice daily. MULTIVITAMIN ORAL TAB Take one(1) tablet daily. [facility] ASPIRIN 81 MG ORAL CHEW Take one(1) tablet daily. LOPRESSOR 50 MG ORAL TAB Take 25mg (half of a 50mg tablet) twice daily. GENPRIL 200 MG ORAL TAB as necessary NASACORT AQ 55 MCG/ACTUATION NASL SPRA Take daily at bedtime. doxycycline monohydrate (MONODOX) 100 mg capsule Take 2 capsules by mouth one time only for 1 dose. ALLERGIES: ALLERGIES Allergen Reactions Apple Swelling, Other: See Comments Aspirin-Dipyridamole Vomiting, Other: See Comments VITALS: BP 120/76 Pulse 75 Resp 18 Wt 80 kg (176 lb 5.9 oz) SpO2 98% PE: Pleasant, in no acute distress. SKIN: left lower lateral abdomen has embedded tick parts with 1 set of legs above the surface. 5mm erythema centered on the tick. ASSESSMENT/PLAN: 1. Tick bite of abdomen, initial encounter - ICD9: 911.4, E906.4, ICD10: S30.861A, W57.XXXA Legs removed. Head left to be expelled with healing. Prophylactic lyme treatment - DOXYCYCLINE MONOHYDRATE 100 MG CAPSULE Follow up with signs of infection such as increasing redness, pain, swelling, purulent drainage, rash, or fever/malaise. Gold Wiley MD Allergies As of Date: 04/27/2024 Noted Allergy Reaction APPLE 04/27/2024 7 - Swelling 14 - Other: See Comments ASPIRIN-DIPYRIDAMOLE 01/20/2017 11 - Vomiting 14 - Other: See Comments Date Reviewed: 04/27/2024 Reviewed by: Mickie Bryan LPN - Fully Assessed Reason for Visit: Tick Bite [Other] Cmt: Left side x 1 day, redness, some soreness Primary Visit Diagnosis:Tick bite of abdomen, initial encounter [S30.861A, W57.XXXA] Order(s):doxycycline monohydrate (MONODOX) 100 mg capsuleTake 2 capsules by mouth one time only for 1 dose.Disp: 2 capsuleRfl: 0 Prescriptions as of 04/27/2024 - cholecalciferol (VITAMIN D3) 1,000 unit tab tablet Take 1,000 Units by mouth once daily. - Yxubi-9-WXI-EPA-Fish Oil (FISH OIL) 1,000 (120-180) mg cap Take 1 capsule by mouth two times a day. - lisinopril-hydroCHLOROt hiazide (ZESTORETIC) 20-12.5 mg per tablet Take 1 tablet by mouth once daily. - rxbtnum-fxetbpenh-qmlmu in D3 500 mg-5 mcg (200 unit) per tablet Take 1 tablet by mouth once daily. - Garlic (GARLIC OIL) 1,000 mg cap Take 1 Each by mouth once daily. - doxycycline monohydrate (MONODOX) 100 mg capsule Take 2 capsules by mouth one time only for 1 dose. - semaglutide (OZEMPIC) 2 mg/dose (8 mg/3 mL) pen injector Inject 2 mg subcutaneously one time a week. - METFORMIN HCL (METFORMIN ORAL) Take 2 Caps-Full by mouth twice daily. - MULTIVITAMIN ORAL TAB Take one(1) tablet daily. - [facility] ASPIRIN 81 MG ORAL CHEW Take one(1) tablet daily. - LOPRESSOR 50 MG ORAL TAB Take 25mg (half of a 50mg tablet) twice daily. - GENPRIL 200 MG ORAL TAB as necessary - NASACORT AQ 55 MCG/ACTUATION NASL SPRA Take daily at bedtime. Problem List As Of Date: 04/27/2024 (None) Prescriptions ordered this encounter Disp Refills Start End DOXYCYCLINE MONOHYDRATE 100 MG CAPSU* 2 ca* 0 04/27/2024 04/27/2024 Route: ORAL Sig: Take 2 capsules by mouth one time only for 1 dose. Medications Discontinued During This Encounter Prescriptions - ZESTRIL 10 MG ORAL TAB (Discontinued) Take one(1) tablet twice daily. Level of Service: OFFICE/OUTPATIENT ESTABLISHED MOD MDM 30 MIN [06047] Encounter Status:Closed by GOLD WILEY on 04/27/[address] [facility] 08-31-2023 Liver [facility] Imaging Services [address] [place] [address] Liver MR#: [id number] Acct: [id number] Name: IBIS WOODWARD Rep #: [id number] : 1945 M 78 From: Giuseppe carreon MD PCP: [facility] Status: REG CLI Study: Liver Date of Exam: 08/31/23 Exam# [id number] Ordering Dr: ALLYN JO [id number] STUDY: ABDOMINAL ULTRASOUND - RIGHT UPPER QUADRANT REASON FOR VISIT: Male, 78 years old FATTY LIVER TECHNIQUE: Ultrasound evaluation of the right upper quadrant was performed with real-time and static merino-scale imaging. TECHNICAL QUALITY: Adequate. COMPARISON: Comparison is made with prior study of October 05, 2022. FINDINGS: Liver: The liver is enlarged and measures 19.7 cm. There is increased echogenicity consistent with fatty infiltration. The bile ducts are within normal limits. There is hepatic color flow. The direction of portal flow is hepatopetal. There is no demonstrated mass lesion. Gallbladder: The patient is status post cholecystectomy. Common Bile Duct (C.B.D.): The common bile duct measures 6 mm. Pancreas: Normal size of the head, body and tail of the pancreas. There is normal echogenicity of the pancreas. There is no demonstrated pancreatic mass or cyst. Right Kidney: Normal size of the right kidney. The right kidney measures 11.3 cm x 4.9 cm x 5.5 cm. Normal renal cortex. The right cortex measures 1.3 cm. There is no demonstrated renal mass or cyst. There is no right hydronephrosis. US/Liver IMPRESSION: Hepatomegaly and fatty infiltration of the liver. The patient status post cholecystectomy. Electronically Signed: Giuseppe Edmonds MD at 10:36 EST , CC: ALLYN JO; [facility] Yeast Culture Developer: Signed Normal [facility] Vital Signs Date Time Vital Sign Value Performing Clinician Faci deony 04-27-2024 07:41-0400 Body weight 80 kg Gold Wiley MD Work Phone: [facility] 04-27-2024 07:41-0400 Diastolic blood pressure 76 mm[Hg] Gold Wiley MD Work Phone: [facility] 04-27-2024 07:41-0400 Heart rate 75 /min Gold Wiley MD Work Phone: [facility] 04-27-2024 07:41-0400 Respiratory rate 18 /min Gold Wiley MD Work Phone: [facility] 04-27-2024 07:41-0400 SaO2% (BldA) [Mass fraction] 98 % Gold Wiley MD Work Phone: [facility] 04-27-2024 07:41-0400 Systolic blood pressure 120 mm[Hg] Gold Wiley MD Work Phone: [facility] 03-30-2023 08:28-0400 Body temperature 98.01 [degF] Richard Baker APRN.FIELD ADMINISTRATIVE ASSISTANT Work Phone: [facility] 03-30-2023 08:28-0400 Body weight 84.01 kg Richard Baker APRN.FIELD ADMINISTRATIVE ASSISTANT Work Phone: [facility] 03-30-2023 08:28-0400 Diastolic blood pressure 80 mm[Hg] Richard Baker APRN.FIELD ADMINISTRATIVE ASSISTANT Work Phone: [facility] 03-30-2023 08:28-0400 Heart rate 70 /min Richard Baker APRN.FIELD ADMINISTRATIVE ASSISTANT Work Phone: [facility] 03-30-2023 08:28-0400 Respiratory rate 18 /min Richard Baker APRN.FIELD ADMINISTRATIVE ASSISTANT Work Phone: [facility] 03-30-2023 08:28-0400 SaO2% (BldA) [Mass fraction] 95 % Richard Baker FIELD ARTILLERY OFFICER.FIELD ADMINISTRATIVE ASSISTANT Work Phone: [facility] 03-30-2023 08:28-0400 Systolic blood pressure 130 mm[Hg] Richard Baker APRN.FIELD ADMINISTRATIVE ASSISTANT Work Phone: [facility] Encounters Encounter Date Encounter Type Care Provider Facility Start: 05-29-2024 End: 05-29-2024 ambulatory [facility] Facility:[facility] Start: 04-27-2024 End: 04-27-2024 ambulatory Facility:[facility] Start: 04-27-2024 End: 04-27-2024 Office outpatient visit 25 minutes Gold Wiley MD Work Phone: [facility] Comment on above: Tick bite of abdomen , initial encounter (Primary Dx) Start: 08-31-2023 End: 08-31-2023 ambulatory [facility] Facility:[facility] Start: 03-30-2023 End: 03-30-2023 Patient encounter procedure Richard Baker APRN.FIELD ADMINISTRATIVE ASSISTANT Work Phone: [facility] Comment on above: Tick bite of right h ip, initial encounter (Primary Dx); Skin lesion Plan of Treatment Date Care Activity Detail Author Start: 11-07-2033 Urine microalbumin profile DTaP,Tdap,Td Vaccine (4 - Td or Tdap) [facility] Start: 03-11-2024 Covid-19 Vaccine ( season) Covid-19 Vaccine ( season) [facility] Start: 03-11-2024 Influenza vaccination Influenza Vacc ine (#1) [facility] Start: 07-11-2023 Advance Directive Discussion Advance Directive Discussion [facility] Start: 03-11-2023 Influenza vaccination Influenza Vacc ine (#1) [facility] Start: 07-11-2022 Advance Directive Discussion Advance Directive Discussion [facility] Start: 07-11-2022 Depression Assessment Depression Ass essment [facility] Start: 2020 RSV Vaccine (1 - 1-d ose 75+ series) RSV Vaccine (1 - 1-dose 75+ series) [facility] Start: 06-28-2019 Urine microalbumin profile DTaP,Tdap,Td Vaccine (2 - Td or Tdap) [facility] Start: 02-04-2015 Shingrix Vaccine (2 of 3) Shingrix V accine (2 of 3) [facility] Start: 2010 Pneumococcal Vaccine : 65+ (1 - PCV) Pneumococcal Vaccine: 65+ (1 - PCV) [facility] Start: 1995 Shingrix Vaccine (1 of 2) Shingrix V accine (1 of 2) [facility] Start: 1990 Diabetes Screening Diabetes Screenin g [facility] Start: 1963 Anxiety Screening Anxiety Screening [facility] Start: 1963 Depression Screening Depression Scre ening [facility] Start: 1963 Hepatitis C Screening Hepatitis C [facility] Start: 1963 Hepatitis C screening Hepatitis C [facility] Start: 1945 Covid-19 Vaccine (#1) Covid-19 Vacci ne (#1) [facility] Immunizations Immunization Date Immunization Notes Care Provider Fa sheri 11-08-2023 tetanus toxoid, redu lewis diphtheria toxoid, and acellular pertussis vaccine, adsorbed Gold Wiley MD Work Phone: [facility] 04-30-2020 influenza (HD-IIV4) vaccine, age 65+ yr, high dose, quadrivalent, PF (FLUZONE HIGH-DOSE) Gold Wiley MD Work Phone: [facility] 04-30-2020 pneumococcal polysaccharide vaccine, 23 valent Gold Wiley MD Work Phone: [facility] 04-30-2020 influenza virus vacc ine, unspecified formulation Gold Wiley MD Work Phone: [facility] 05-04-2019 Seasonal trivalent influenza vaccine, adjuvanted, preservative free Gold Wiley MD Work Phone: [facility] 01-23-2019 pneumococcal polysaccharide vaccine, 23 valent Gold Wiley MD Work Phone: [facility] 07-26-2018 Seasonal trivalent influenza vaccine, adjuvanted, preservative free Gold Wiley MD Work Phone: [facility] 07-27-2017 influenza, high dose seasonal, preservative-free Gold Wiley MD Work Phone: [facility] 07-27-2017 influenza virus vacc ine, unspecified formulation Richard King PAT Work Phone: [facility] 08-04-2016 influenza, seasonal, injectable Gold Wiley MD Work Phone: [facility] 06-16-2015 influenza, seasonal, injectable Gold Wiley MD Work Phone: [facility] 03-13-2015 pneumococcal conjuga te vaccine, 13 valent Gold Wiley MD Work Phone: [facility] 12-10-2014 zoster vaccine, live Gold Nath MD Work Phone: [facility] 05-13-2014 influenza virus vacc ine, unspecified formulation Gold Wiley MD Work Phone: [facility] 05-17-2013 influenza virus vacc ine, unspecified formulation Gold Wiley MD Work Phone: [facility] 02-28-2013 tetanus toxoid, redu lewis diphtheria toxoid, and acellular pertussis vaccine, adsorbed Gold Wiley MD Work Phone: [facility] 03-16-2012 influenza virus vacc ine, unspecified formulation Gold Wiley MD Work Phone: [facility] 03-11-2012 influenza virus vacc ine, unspecified formulation Gold Wiley MD Work Phone: [facility] 04-21-2011 influenza virus vacc ine, unspecified formulation Gold Wiley MD Work Phone: [facility] 05-19-2010 influenza virus vacc ine, unspecified formulation Gold Wiley MD Work Phone: [facility] 10-21-2009 novel influenza-H1N1 -09, all formulations Gold Wiley MD Work Phone: [facility] 06-28-2009 tetanus toxoid, redu lewis diphtheria toxoid, and acellular pertussis vaccine, adsorbed Richard Samuel FIELD ARTILLERY OFFICER.FIELD ADMINISTRATIVE ASSISTANT Work Phone: [facility] Work Phone: 04-24-2009 influenza virus vacc ine, unspecified formulation Gold Wiley MD Work Phone: [facility] 05-11-2008 influenza virus vacc ine, unspecified formulation Gold Wiley MD Work Phone: [facility] 04-18-2007 influenza virus vacc elaine, unspecified formulation Gold Wiley MD Work Phone: [facility] 05-10-2006 influenza virus vacc ine, unspecified formulation Gold Wiley MD Work Phone: [facility] 05-04-2005 influenza virus vacc ine, unspecified formulation Gold Wiley MD Work Phone: [facility] 06-02-2004 pneumococcal vaccine , unspecified formulation Gold Wiley MD Work Phone: [facility] 06-10-2003 influenza virus vacc ine, unspecified formulation Gold Wiley MD Work Phone: [facility] Payers Date Payer Category Payer Self-pay 2023 Unknown [id number] 2021 Unknown [id number] 2021 Medicare [id number] Unknown [id number] Unknown [id number] Social History Date Type Detail Facility Start: 03-30-2023 End: 04-27-2024 Tobacco smoking status NHIS Ex-smoker [facility] End: 10-30-1964 History of tobacco use Current smoker [facility] End: 10-30-1964 History of tobacco use Cigarette Smoker [facility] Start: 03-30-2023 End: 04-27-2024 Alcohol intake Current non-drinker of alcohol (finding) [facility] Start: 03-30-2023 End: 04-27-2024 History of Social function [facility] Start: 03-30-2023 End: 04-27-2024 Tobacco use panel [facility] Start: 1945 Sex Assigned At Not on file C [facility] Progress note 04-27-2024 Note Date & Type Note Facility 04-27-2024 Note HNO ID: [id number] Author: GOLD WILEY MD Service: ? Author Type: Physician Type: Progress Notes Filed: 04/27/2024 08:01 Note Text: Patient presents with: Tick Bite: Left side x 1 day, redness, some soreness HPI: Skin Lesion: Location: left lower abdomen Duration: noticed yesterday. Unknown duration. Cut a shrub in [place] 4 days ago. Has mowed his own yard this week. Has cats and dogs at home. Pruritis/Pain: hurts Drainage/blister/pustule/ulceration: red around a tick. Denies fever, myalgia, arthralgia, rash, malaise. Treatment: tried to remove MEDICATIONS: cholecalciferol (VITAMIN D3) 1,000 unit tab tablet Take 1,000 Units by mouth once daily. Tcups-2-CCA-EPA-Fish Oil (FISH OIL) 1,000 (120-180) mg cap Take 1 capsule by mouth two times a day. lisinopril-hydroCHLOROthiazide (ZESTORETIC) 20-12.5 mg per tablet Take 1 tablet by mouth once daily. rkurhxj-ebkvfwyjc-hmtnecy D3 500 mg-5 mcg (200 unit) per tablet Take 1 tablet by mouth once daily. Garlic (GARLIC OIL) 1,000 mg cap Take 1 Each by mouth once daily. semaglutide (OZEMPIC) 2 mg/dose (8 mg/3 mL) pen injector Inject 2 mg subcutaneously one time a week. METFORMIN HCL (METFORMIN ORAL) Take 2 Caps-Full by mouth twice daily. MULTIVITAMIN ORAL TAB Take one(1) tablet daily. CHRISTIA[employer] CHIL[employer]ENS ASPIRIN 81 MG ORAL CHEW Take one(1) tablet daily. LOPRESSOR 50 MG ORAL TAB Take 25mg (half of a 50mg tablet) twice daily. GENPRIL 200 MG ORAL TAB as necessary NASACORT AQ 55 MCG/ACTUATION NASL SPRA Take daily at bedtime. doxycycline monohydrate (MONODOX) 100 mg capsule Take 2 capsules by mouth one time only for 1 dose. ALLERGIES: ALLERGIES Allergen Reactions Apple Swelling, Other: See Comments Aspirin-Dipyridamole Vomiting, Other: See Comments VITALS: BP 120/76 Pulse 75 Resp 18 Wt 80 kg (176 lb 5.9 oz) SpO2 98% PE: Pleasant, in no acute distress. SKIN: left lower lateral abdomen has embedded tick parts with 1 set of legs above the surface. 5mm erythema centered on the tick. ASSESSMENT/PLAN: 1. Tick bite of abdomen, initial encounter - ICD9: 911.4, E906.4, ICD10: S30.861A, W57.XXXA Legs removed. Head left to be expelled with healing. Prophylactic lyme treatment - DOXYCYCLINE MONOHYDRATE 100 MG CAPSULE Follow up with signs of infection such as increasing redness, pain, swelling, purulent drainage, rash, or fever/malaise. Gold Wiley MD [facility] History of Present illness Narrative 04-27-2024 Gold Wiley MD - 04/27/2024 7:53 AM EDT Note Date & Type Note Facility 04-27-2024 History of Presen t illness Narrative Patient presents with: Tick Bite: Left side x 1 day, redness, some soreness HPI: Skin Lesion: Location: left lower abdomen Duration: noticed yesterday. Unknown duration. Cut a shrub in [place] 4 days ago. Has mowed his own yard this week. Has cats and dogs at home. Pruritis/Pain: hurts Drainage/blister/pustule/ulceration: red around a tick. Denies fever, myalgia, arthralgia, rash, malaise. Treatment: tried to remove MEDICATIONS: cholecalciferol (VITAMIN D3) 1,000 unit tab tablet Take 1,000 Units by mouth once daily. Kjuma-1-TUF-EPA-Fish Oil (FISH OIL) 1,000 (120-180) mg cap Take 1 capsule by mouth two times a day. lisinopril-hydroCHLOROthiazide (ZESTORETIC) 20-12.5 mg per tablet Take 1 tablet by mouth once daily. qcdeaoj-efeqkbrac-lzntxty D3 500 mg-5 mcg (200 unit) per tablet Take 1 tablet by mouth once daily. Garlic (GARLIC OIL) 1,000 mg cap Take 1 Each by mouth once daily. semaglutide (OZEMPIC) 2 mg/dose (8 mg/3 mL) pen injector Inject 2 mg subcutaneously one time a week. METFORMIN HCL (METFORMIN ORAL) Take 2 Caps-Full by mouth twice daily. MULTIVITAMIN ORAL TAB Take one(1) tablet daily. CH[employer]NA CHILDRENS ASPIRIN 81 MG ORAL CHEW Take one(1) tablet daily. LOPRESSOR 50 MG ORAL TAB Take 25mg (half of a 50mg tablet) twice daily. GENPRIL 200 MG ORAL TAB as necessary NASACORT AQ 55 MCG/ACTUATION NASL SPRA Take daily at bedtime. doxycycline monohydrate (MONODOX) 100 mg capsule Take 2 capsules by mouth one time only for 1 dose. ALLERGIES: ALLERGIES Allergen Reactions Apple Swelling, Other: See Comments Aspirin-Dipyridamole Vomiting, Other: See Comments VITALS: BP 120/76 Pulse 75 Resp 18 Wt 80 kg (176 lb 5.9 oz) SpO2 98% PE: Pleasant, in no acute distress. SKIN: left lower lateral abdomen has embedded tick parts with 1 set of legs above the surface. 5mm erythema centered on the tick. ASSESSMENT/PLAN: 1. Tick bite of abdomen, initial encounter - ICD9: 911.4, E906.4, ICD10: S30.861A, W57.XXXA Legs removed. Head left to be expelled with healing. Prophylactic lyme treatment - DOXYCYCLINE MONOHYDRATE 100 MG CAPSULE Follow up with signs of infection such as increasing redness, pain, swelling, purulent drainage, rash, or fever/malaise. Gold Wiley MD documented in this encounter [facility] History of Present illness Narrative 03-30-2023 Richard Baker APRN.FIELD ADMINISTRATIVE ASSISTANT - 03/30/2023 8:36 AM EDT Note Date [...] nothing. Risk factors was recently out in [place]. Denies cp/sob, fever, body aches, flu like [...] s/s. - DOXYCYCLINE MONOHYDRATE 100 MG TABLET Richard Baker APRN.FIELD ADMINISTRATIVE ASSISTANT documented in this encounter [facility] Evaluation note Note Date & Type Note Facility Evaluation note Diagnosis Tick bite of right hip, initial encounter- Primary Skin lesion Unspecified disorder of skin and subcutaneous tissue documented in this encounter [facility] Evaluation note Note Date & Type Note Facility Evaluation note Diagnosis Tick bite of abdomen, initial encounter- Primary documented in this encounter [facility] Summary Purpose Family History No Family History Records FoundNo Family History Records Found Advance Directives No Advanced Directives Records FoundNo Advanced Directives Records Found Additional Source Comments Source Comments (unrecognize d section and content) In the event this informatio n is protected by the Federal Confidentiality of Alcohol and Drug Abuse Patient Records regulations: The Federal rules restrict any use of the information to criminally investigate or prosecute any alcohol or drug abuse patient.[facility] event this information is protected by the Federal Confidentiality of Alcohol and Drug Abuse Patient Records regulations: The Federal rules restrict any use of the information to criminally investigate or prosecute any alcohol or drug abuse patient.[facility] Reason for Visit (unrecogniz ed section and content) Reason Comments Tick Bite Right back of thigh x 1 day Reason Comments Tick Bite Left side x 1 day, r edness, some soreness Care Teams (unrecognized sec tion and content) Carbide Grinder Relationship Specialty Start Date End Date No, Pcp (Historical) PCP - General 11/24/15 Carbide Grinder Relationship Specialty Start Date End Date No, Pcp (Historical) PCP - General 11/24/15 (unrecognized sect ion and content) No Status Records FoundNo Status Records Found INFORMATION SOURCE (unrecogn ized section and content) DATE CREATED AUTHOR 04/29/2024 [facility] DATE CREATED AUTHOR AUTHOR'S ORGANIZ ATION 07/01/2024 [facility] FOR RECORDS PERTAINING TO PATIENTS WHO ARE [...] BE BASED ON THE PRIMARY CLINICAL RECORDS. [employer] provides no warranty or guarantee of the accuracy or completeness of information in this document.
--- NOTE | 2025-01-13 12:43 | EKG12_ITS ---
Test Reason : EARTH BURNER Blood Pressure : */* mmHG Vent. Rate : 108 BPM Atrial Rate : 108 BPM P-R Int : 174 ms QRS Dur : 84 ms QT Int : 344 ms P-R-T Axes : -1 -51 34 degrees QTcB Int : 460 ms Sinus tachycardia Left anterior fascicular block Abnormal ECG Confirmed by JOSETTE GERONIMO, BENJAMIN ([id number]), food editor ELISA AG ([id number]) on 01/14/2025 11:03:14 AM Referred By: GENTRY Confirmed By: BENJAMIN FINCH MD
[2025-01-13] MEDS: 0.9% Normal Saline (1000mL) 1,000 ML 1000 ML IV ×3 (12:53→18:37)
[2025-01-13 13:01] LABS: Differential Indicated SCAN CRITERIA MET; Hematocrit 43.2 % (40-54); Hemoglobin 15.4 g/dL (13.0-16.5); Immature Granulocytes Count 0.030 X10^3/uL (0.0-0.0); Mean Corp Hgb Conc 35.6 g/dL (32-36); Mean Corpuscular Volume 94.3 fL (80-94); Mean Platelet Vol. 10.7 fl (6.2-12.0); NRBC Flagged by Analyzer 0 % (0-5); POSITIVE COUNT YES; Platelet Count 81 K/mm3 (150-450); RBC Distribution Width CV 12.2 % (11.6-14.6); RBC Distribution Width SD 42.8 fl (35.1-43.9); Red Blood Count 4.58 M/mm3 (4.6-6.2); White Blood Count 6.8 K/mm3 (4.4-11.0)
--- NOTE | 2025-01-13 13:20 | CM.ED ---
Social Work Date of referral: 01/13/2025 Reason for Referral: Rapid Response Team (SERVICE DIRECTOR) alert Architectural Project Captain arrived in the parking lot after responding to the SERVICE DIRECTOR alert. Patient was observed to be lying on his pack in the parking lot. A by-stander reported he did not witness the fall, however was outside and noticed patient lying on the ground and called for help. Medical team arrived and shortly after, patient's arrived. Patient's stated patient was shaky after orthodoxy today and has been sleeping a lot. Patient had been waiting in the car while patient's had been inside the hospital visiting someone. Patient must have gotten out of the car for some reason. Architectural Project Captain stayed with patient and patient's until patient was able to be transported to the ED. (end time: believed to be around 12:10) Architectural Project Captain stopped in to check on patient and patient's . Patient was sleeping, and patient's daughter, Linnea had also arrived and was there as a support to patient's . Both expressed appreciation and gratitude for Architectural Project Captain's help and support and denied any additional needs/concerns at this time. (end time: 13:20) Mariela Hyde, ARCHITECTURAL PROJECT CAPTAIN, STRAIGHTENER AND ALIGNER
[2025-01-13 13:29] LABS: Color, Urine Yellow (Yellow); Glucose, Dipstick 1000 mg/dl (Normal); Ketone-Dipstick 15 mg/dl (Negative); Leukocyte Esterase-Dipstick Negative /ul (Negative); Nitrite-Dipstick Negative (Negative); Occult Blood-Urine 10 /ul (Negative); Protein-Dipstick Negative (Negative); Specific Gravity, Urine 1.015 (1.002-1.030); Urine Bilirubin Dipstick Negative (Negative)
[2025-01-13 13:47] LABS: Anion Gap 18 (5-15); BUN 16 mg/dL (4-19); BUN/Creat Ratio 14.2 RATIO (10-20); Calcium,Total 9.2 mg/dL (7.6-11.0); Carbon Dioxide 18.3 mmol/L (21.0-32.0); Chloride 101 mmol/L (98-108); Estimated Creatinine Clearance 58.15 ml/min (50-250); Glucose 144 mg/dL (70-99); Potassium 3.9 mmol/L (3.3-5.1)
--- NOTE | 2025-01-13 13:51 | RAD_ITS ---
PROCEDURE: CHEST PA AND LATERAL 01/13/2025 REASON FOR EXAM: TACHYPNEA AND FEVER TECHNIQUE: CHEST PA AND LATERAL COMPARISON: None. FINDINGS: Hardware: None. Heart: The heart size is normal. Mediastinum: The mediastinal contour is unremarkable. Lungs: Bibasilar atelectasis. No focal consolidation, pleural effusion or pneumothorax. Bones: Degenerative changes are identified within the thoracic spine. Arthrosis of the bilateral glenohumeral joints. RAD/Chest PA and Lateral IMPRESSION: NO ACUTE FINDINGS. Reading Location: [id number]
--- NOTE | 2025-01-13 15:49 | EX.ED.DYSGE1 ---
HPI History of Present Illness Chief Complaint: Fall Detail of Chief Complaint: Patient was a rapid response. He was found on the ground next to his car i Informant: patient Onset/Context/Timing Onset: Today Context: Sudden Onset Timing: - (Uncertain) Quality: Patient fell in the hospital parking lot. Had a temperature greater than 1 Location: Contusion to the left occipital region Current Severity: Patient does not have much complaints Worsened by: Unknown Relieved by: Not applicable Associated Symptoms Associated Symptoms: Denies shortness of breath even though his respiratory rate is between 30 a Narrative Narrative: Patient is an elderly male. He was a rapid response. He was found down in the parking lot. I was informed by nursing staff that he had a temperature greater than 103. Concern was that he was outside for prolonged period of time. After security reviewed the tapes it was found that he was on the ground for approximately 5 minutes. Denies headache. Denies double vision blurred vision loss of vision. He denies ringing in his ears or decreased hearing. He does endorse thirst. He denies trouble with his speech or swallowing. He denies cardiac symptoms. He denies shortness of breath. He denies cough. He denies abdominal pain, nausea, vomiting diarrhea. Denies black or maroon-colored stool. He denies headache. He denies double vision, blurred vision or loss of vision. Eyes garcia ears decreased hearing. He denies paresthesia, anesthesia or motor weakness upper or lower extremity. Prior similar symptoms: No Recent Illness/[facility]ospital[facility]: [facility] Medical History Wears glasses Diabetes History of irregular heartbeat B12 deficiency CKD (chronic kidney disease), stage II Allergic rhinitis Neuropathy Hyperlipidemia Vitamin D deficiency Back pain Rosacea Home Medications ?Medication ?Instructions ?Recorded ?Last Taken ?Type cyclobenzaprine 10 mg tablet 5 mg (1/2 x 10 mg) PO TID PRN 10/20/15 01/06/21 Rx Muscle Spasm #10 TABLETS metoprolol tartrate 25 mg tablet 12.5 mg PO BID 10/20/15 01/06/21 History potassium chloride 20 mEq 20 meq PO DAILY 10/20/15 01/06/21 History tablet,extended release(part/cryst) (Klor-Con M) alogliptin 25 mg tablet 25 mg PO DAILY 12/18/20 01/06/21 History atorvastatin 80 mg tablet 80 mg PO QHS 12/18/20 12/30/20 History empagliflozin 25 mg tablet 25 mg PO QAM 12/18/20 01/06/21 History (Jardiance) glipizide 5 mg tablet 10 mg PO BIDAC 12/18/20 01/06/21 History lisinopril 20 1 tab PO DAILY 12/18/20 01/06/21 History mg-hydrochlorothiazide 12.5 mg tablet Allergy/AdvReac Type Severity Reaction Status Date / Time No Known Allergies Allergy Verified 01/13/25 12:38 Family History Brother Diabetes Cancer CHF (congestive heart failure) Surgical History History of cholecystectomy History of colonoscopy (~05/2017) Social History (Updated 01/13/25 @ 15:[address] Ramsey Knight MD) household members: spouse Smoking Status: Never smoker ROS ROS ED Constitutional Constitutional ED: Reports sweats; Denies chills, fever(s) or subjective Eyes Eyes: Denies blurry vision or change in vision ENT ENT ED: Denies ear pain, rhinorrhea or sore throat Cardiovascular Cardiovascular: Denies chest pain, orthopnea, palpitations or paroxysmal nocturnal dyspnea Respiratory/Chest Respiratory/Chest: Denies cough, dyspnea, dyspnea on exertion, orthopnea or paroxysmal nocturnal dyspnea Gastrointestinal Gastrointestinal: Denies abdominal pain, diarrhea, nausea or vomiting Genitourinary Genitourinary ED: Denies dysuria, hematuria or urinary frequency Musculoskeletal Musculoskeletal: Denies arthralgias or myalgias Integumentary Reports Abrasions Neurologic Neurologic: Reports headache(s); Denies paresthesias or weakness Psychiatric Psychiatric: Denies anxiety or depression Endocrine Endocrinology: Denies cold intolerance or heat intolerance Hematologic/Lymphatic Hematologic/Lymphatic: Reports systems reviewed and no addt'l complaints, except as documented EXAM Physical Exam Const Vital Signs: 01/13/25 12:30 01/13/25 12:31 01/13/25 12:58 Temperature 103.2 F H 103 F H Temperature Source Oral Oral Pulse Rate 107 H 99 Respiratory Rate 42 H 38 H Respiratory Effort Respiratory Pattern Tachypnea Blood Pressure 134/88 H 139/84 H Blood Pressure Mean 103 102 Pulse Ox 91 94 Oxygen Delivery Method Room Air Room Air 01/13/25 13:32 01/13/25 14:15 01/13/25 15:09 Temperature 103.6 F H 103.4 F H Temperature Source Core Core Pulse Rate 81 76 Respiratory Rate 28 H 28 H Respiratory Effort Normal Non-Labored Respiratory Pattern Normal Blood Pressure 154/78 H 142/78 H Blood Pressure Mean 103 99 Pulse Ox 92 95 Oxygen Delivery Method Room Air Room Air 01/13/25 15:11 01/13/25 16:00 01/13/25 16:38 Temperature 102.3 F H 101.5 F H 101.6 F H Temperature Source Core Core Core Pulse Rate 68 Respiratory Rate 20 H Respiratory Effort Respiratory Pattern Blood Pressure 130/78 H Blood Pressure Mean 95 Pulse Ox 93 Oxygen Delivery Method Room Air 01/13/25 17:00 01/13/25 17:00 01/13/25 17:37 Temperature 101.6 F H 102.1 F H Temperature Source Core Core Pulse Rate 69 Respiratory Rate 20 H Respiratory Effort Respiratory Pattern Blood Pressure 142/82 H 142/82 H Blood Pressure Mean 102 102 Pulse Ox 94 Oxygen Delivery Method Room Air 01/13/25 18:00 01/13/25 18:19 01/13/25 18:49 Temperature 103.9 F H 103.9 F H 104.8 F H Temperature Source Core Core Core Pulse Rate 86 Respiratory Rate 24 H Respiratory Effort Respiratory Pattern Blood Pressure 144/90 H Blood Pressure Mean 108 Pulse Ox 94 Oxygen Delivery Method Room Air Vital signs noted. Patient is tachypneic. He is not hypoxic however. Blood pressure is slightly elevated. His initial temperature was 103.2. Because it was thought to be environmentally induced and cooling blanket was obtained. Nursing staff put a temperature probe catheter in. This was obtained to assess his temperature as well as accurate I's and O's. Core temperature even after Tylenol is 102.3. Positive well nourished and well developed General Appearance ED: well developed and NAD; Negative for cyanotic or diaphoretic HEENT Reports dry mucous membranes HEENT Narrative: Left occipital area trauma and tenderness Mouth ED: Yes dry mucous membranes Mouth: dry mucous membranes Eyes PERRL General Eye ED: Negative for pale conjunctiva or scleral icterus Neck no lymphadenopathy, supple and no JVD Neck Narrative: There is no midline posterior neck pain. Chest Wall inspection of chest normal and palpation of chest normal Resp normal respiratory effort and clear to auscultation bilaterally Resp Narrative: Patient is tachypneic. Cardio regular rhythm, S1 normal heart sound, S2 normal heart sound and no murmurs Rate: tachycardic GI normal to inspection, nondistended, normoactive bowel sounds, non-tender, non-distended and no masses; Negative for hepatosplenomegaly Palpation: soft Back/Spine no CVA tenderness Thoracic Spine / Upper Back: Negative for thoracic spinal tenderness Lumbar Spine / Lower Back: Negative for lumbar spinal tenderness Extremity normal to inspection Neuro oriented x3 and CN's II-XII intact bilaterally Sensorium / Orientation: alert Psych mental status grossly normal Skin Skin Narrative: Abrasion occiput on the left there is no palpable pression. There are no clinical signs of basilar skull fracture. Sepsis Attestation Sepsis Alert: Yes Sepsis Attestation: Agree w/Sepsis Date exam was performed: 01/13/25 Time exam was performed: 18:03 Possible Source of Sepsis: Unknown Sepsis Organ Dysfunction Criteria Present: Platelets <100,000 / uL Fluid Resuscitation Fluid resuscitation indicated?: Yes Fluid Resuscitation ordered: Lesser volume fluid bolus ordered Amount of fluid ordered: 2,000 Reason for lesser fluid bolus:: Other (Patient is no longer tachycardic and he has never been hypotensive.) MDM MDM MDM Narrative Medical decision making narrative: Initially was thought the patient's temperature was elevated due to environmental exposure. With him being tachypneic and persistent tachypnea and persistent elevated temperature this may be due to infectious causes. Will obtain chest x-ray to rule out pneumonia since he is tachypneic. Urine to assess spec gravity, ketones and if any proteinuria hematuria or evidence of infection. Based on history doubt rhabdomyolysis. History & Record Review Discussion w/independent historian: Significant other Additional record(s) reviewed:: Prior outpatient record (Outpatient note authored by Dr. Harlan Foster for colonoscopy was reviewed. Patient underwent colonoscopy because of colonic polyps.) and Prior labs Lab Data Attestation: I reviewed the patient's lab results. Lab results narrative: White count is normal. Indices are slightly elevated. Basic metabolic panel is remarkable for CO2 of 18 and anion gap of 18. Glucose is slightly elevated 144. Urine is remarkable for gravity 1.015, glucose, ketones and occult blood. There is no nitrites or leukoesterase. Labs: Laboratory Results - last 24 hr 01/13/25 01/13/25 01/13/25 12:40 12:56 13:10 WBC 6.8 RBC 4.58 L Hgb 15.4 Hct 43.2 MCV 94.3 H MCH 33.6 H MCHC 35.6 RDW Std Deviation 42.8 RDW Coeff of Ty 12.2 Plt Count 81 L MPV 10.7 Immature Gran % (Auto) 0.400 Neut % (Auto) 71.9 H Lymph % (Auto) 13.8 L Haskell % (Auto) 13.6 H Eos % (Auto) 0.0 Baso % (Auto) 0.3 Absolute Neuts (auto) 4.9 Absolute Lymphs (auto) 0.93 Nucleated RBC % 0 Platelet Estimate MOD DEC PT 14.9 INR 1.1 APTT 28.8 Sodium 137 Potassium 3.9 Chloride 101 Carbon Dioxide 18.3 L Anion Gap 18 H BUN 16 Creatinine 1.13 Estim Creat Clear Calc 58.15 Est GFR (MDRD) Non-Af 66 BUN/Creatinine Ratio 14.2 Glucose 144 H Lactic Acid Calcium 9.2 Urine Color Yellow Urine Clarity Clear Urine pH 6.0 Ur Specific [place] 1.015 Urine Protein Negative Urine Glucose (UA) 1000 H Urine Ketones 15 H Urine Occult Blood 10 H Urine Nitrite Negative Urine Bilirubin Negative Urine Urobilinogen Normal Ur Leukocyte Esterase Negative POC Glucose 176 H 01/13/25 18:10 WBC RBC Hgb Hct MCV MCH MCHC RDW Std Deviation RDW Coeff of Ty Plt Count MPV Immature Gran % (Auto) Neut % (Auto) Lymph % (Auto) Haskell % (Auto) Eos % (Auto) Baso % (Auto) Absolute Neuts (auto) Absolute Lymphs (auto) Nucleated RBC % Platelet Estimate PT INR APTT Sodium Potassium Chloride Carbon Dioxide Anion Gap BUN Creatinine Estim Creat Clear Calc Est GFR (MDRD) Non-Af BUN/Creatinine Ratio Glucose Lactic Acid 3.3 H* Calcium Urine Color Urine Clarity Urine pH Ur Specific [place] Urine Protein Urine Glucose (UA) Urine Ketones Urine Occult Blood Urine Nitrite Urine Bilirubin Urine Urobilinogen Ur Leukocyte Esterase POC Glucose Radiography Chest X-Ray - ED: 2 View and Read by ED Physician (Limited study due to poor inspiration and technique. There is no obvious infiltrate or effusion. Cardiac silhouette is unremarkable. Hilum is unremarkable. Osseous structures with chronic degenerative changes of the dorsal spine.) Diagnostic Testing: Clinical Impression(s) from Imaging Studies Chest X-Ray 01/13/25 13:51 IMPRESSION: NO ACUTE FINDINGS. Reading Location: [facility] EKG Initial EKG: Attestation: I personally reviewed and interpreted this EKG as follows: Interpretation: Sinus Tachycardia (Sinus tachycardia rate of 108. There is left anterior fascicular block. [place] is left. MA interval is 174 ms. Cures duration 84 ms. QT duration 344 ms.) Management Discussion w/another healthcare provider: Hospitalist (Case was discussed with Dr. Lizzette Anthony. She would like to see patient and determine if he should go to ICU versus stepdown.) Treatment and Re-Evaluation :: Patient was reassessed at 1603. He states he had no complaints the last couple of days. Family and states that he was more sleepy and apparently slept for significant mount of time on the lazy boy yesterday. Since he has not urinated after receiving the first liter of normal saline a second liter was ordered. Comments:: With no obvious source of his fever will obtain lactate, blood cultures since he is tachypneic will obtain rapid antigen for COVID, RSV and influenza. His pulse ox is within acceptable range but lower end of normal. Procalcitonin was obtained. If this is elevated we will treat for fever of unknown etiology with Zosyn and vancomycin. Went in to talk to patient and family at 1800. Patient appears slightly ashen. He has rigors. In light of this we will start him on Zosyn and vancomycin for infection of unknown source. Since he has thrombocytopenia which is evidence of endorgan dysfunction this probably represents sepsis. Vital Sign Attestation:: I was informed at 1848 that patient's temperature was 104.8. 650 mg of Tylenol was ordered. Plan is admit to ICU. Patient will have a CT of his abdomen, pelvis and chest to determine possible source. Critical Care Time Critical Care Time: Yes Critical care time (excluding procedures): 30-74 minutes (32), Including time spent: (History, physical, documentation, independent rotation of laboratory results, repeat evaluation x 3), Discussing w/Patient &/or Family/Inspector Production [employer] (Updating patient and family and telling them at 1802 that he will need to be admitted in light of his temperature rising to 103.2 with rigors), Discussing w/Consultants (Hospitalist was paged for admission for fever of unknown etiology with rigors) and Arranging Admission or Transfer Discharge Plan Dx/Rx/DC Orders Clinical Impression: Chills with fever, Thrombocytopenia, SIRS (systemic inflammatory response syndrome), Tachypnea, Sinus tachycardia seen on mortar mixer, High anion gap metabolic acidosis, Type 2 diabetes mellitus with hyperglycemia, Ketosis, Elevated blood pressure reading with diagnosis of hypertension Disposition Disposition: Acute Care Hospital [facility]
--- NOTE | 2025-01-13 18:11 | PCA ---
THIS BUSINESS ANALYTICS SPECIALIST [facility] TO [facility] IF [facility] HAD [facility]AIL[facility] FOR PT ADMISSION. THEY WILL CALL BACK AND UPDATE US.
--- NOTE | 2025-01-13 18:18 | PCA ---
[facility] REQUESTED THIS CUTTING AND SPLICING SUPERVISOR SEND OVER THE MEDICAL WORK UP. THIS WAS COMPLETED AT 1820. TO FAX# [phone]. NOW WAITING FOR THE FAX CONFORMATION
[2025-01-13 18:34] LABS: Prothrombin Time (Protime)PT. 14.9 SECONDS (11.7-14.9)
[2025-01-13 18:35] LABS: Partial Thromboplast Time 28.8 Seconds (24.1-36.2)
[2025-01-13] MEDS: Piperacil/Tazobactam 4.5 GM in 0.9% Normal Saline (100mL MB+) 100 ML IV (18:37)
--- NOTE | 2025-01-13 19:01 | PCA ---
[facility] CALLED AT 1900 AND GOT ALL THE INFO URSULA FAXED OVER EARLIER.
--- NOTE | 2025-01-13 19:06 | CT_ITS ---
PROCEDURE: CT CHEST, ABD, PEL W/CONTRAST 01/13/2025 REASON FOR EXAM: TEMP 104.8, UNCLEAR SOURCE TECHNIQUE: Chest, abdomen and pelvis CT with intravenous contrast. Coronal and Sagittal reconstruction series were provided. One or more dose reduction techniques were used (e.g., Automated exposure control, adjustment of the mA and/or kV according to patient size, use of iterative reconstruction technique. PATIENT PREPARATION: Per protocol ORAL CONTRAST TYPE: None. AMOUNT: mL CONTRAST: Isovue 370 VOLUME: 90mL Gauge IV RADIATION DOSE SUMMARY: CTDlvol: 15.20, 15.52 in 17.08 mGy DLP: 1575.24 mGycm COMPARISON: No comparison CTs FINDINGS: CT CHEST: Lymph nodes: No mediastinal or sizable axillary lymph nodes Heart and Vasculature: Normal size heart. Density in the left anterior descending is regular and suggests metallic stents. Correlate with cardiac history Lungs and Airways: Predominantly clear Pleura: Unremarkable Bones: Moderate numbers of multilevel spondylosis, specifically bridging osteophytes CT ABDOMEN/PELVIS: Liver: Unremarkable . Gallbladder: status post cholecystectomy. Cholecystectomy clips in the gallbladder fossa Spleen: Markedly tortuous and calcified splenic artery. The spleen itself is unremarkable. Pancreas: Normal Adrenals: Normal Kidneys: Moderate simple cysts left kidney. Kidneys are otherwise unremarkable. Bladder: Crisostomo catheter in place. Bladder is nondistended. Reproductive Organs: Prostate and seminal vesicles unremarkable. Bowel: Unremarkable. Appendix: Normal right lower quadrant Lymph nodes: None Vasculature: Normal Peritoneum/Retroperitoneum: Clear Bones: Unremarkable. CT/CT Chest, Abd, Pel w/Contrast IMPRESSION: No acute process appreciated. Status post cholecystectomy [facility]
[2025-01-13] MEDS: Vancomycin HCl 2,000 MG in 0.9% Normal Saline (500mL Bag) 500 ML 250 MG IV (19:15)
--- NOTE | 2025-01-13 19:20 | PCM.HP.STD ---
HPI - General General Date of Admission: 01/13/25 Date of Service: 01/13/25 Chief Complaint: Fall w/ elevated temperature HPI Narrative IBIS GREEN, is a 79-year-old male with a history of hypertension and diabetes presented [facility] ED 01/13/2025 after being found down in the parking lot by his car. Security tapes show he was on the ground for around 5 minutes. In the ED temperature 103.2, heart rate initially 107 with blood pressure 134/88, respiratory rate 42 with pulse ox 91% on room air. CBC with white blood cell count of 6.8 and hemoglobin 15.4, platelets of 81. BMP showed a bicarb of 18.3 and a gap of 18 with a glucose of 144. UA negative for UTI. Chest x-ray no acute process. It was initially felt that patient may have been hyperthermic due to being on the ground in the heat however despite cooling patient remained hypothermic with temperature actually increasing despite conservative measures and Tylenol. Blood cultures ordered and pt given broad spectrum abx and hospitalist contacted for admission. Patient evaluated with family members at bedside. Daughter reports yesterday he did not have as much energy as he usually does but aside from that it seemed he was in his normal health, at time of the evaluation patient has spence negative ROS. endorses that he been complaining of some mid upper back pain mostly when he is up moving around but nothing severe, no worsening on palpation, no other neuromusculoskeletal complaints and was not having it [place] resting in bed. Patient denied any headache, changes in vision, no stiff neck, no cough or shortness of breath, no chest pain, no abdominal pain, denied diarrhea or any urinary symptoms. Denies any rashes or areas with concern for infections or abrasions. [facility] Medical History Wears glasses Diabetes History of irregular heartbeat B12 deficiency CKD (chronic kidney disease), stage II Allergic rhinitis Neuropathy Hyperlipidemia Vitamin D deficiency Back pain Rosacea Home Medications ?Medication ?Instructions ?Recorded ?Last Taken ?Type metoprolol tartrate 25 mg tablet 25 mg PO BID htn 10/20/15 01/06/21 History atorvastatin 80 mg tablet 80 mg PO QHS cholesterol 12/18/20 12/30/20 History empagliflozin 25 mg tablet 25 mg PO QAM diabetes 12/18/20 01/06/21 History (Jardiance) glipizide 5 mg tablet 10 mg PO BIDAC diabetes 12/18/20 01/06/21 History lisinopril 20 1 tab PO DAILY htn 12/18/20 01/06/21 History mg-hydrochlorothiazide 12.5 mg tablet insulin glargine 100 unit/mL (3 18 unit subcut QHS diabetes 01/13/25 Unknown History mL) subcutaneous pen (Lantus Solostar U-100 Insulin) metformin 1,000 mg tablet 1,000 mg PO BID diabetes 01/13/25 Unknown History saw palm 160 mg-vit E 100 1 tab PO DAILY prostate 01/13/25 Unknown History unit-selen 100 lgm-zyff-qlxqgh-pygeum tablet (Prostate Health) Allergy/AdvReac Type Severity Reaction Status Date / Time No Known Allergies Allergy Verified 01/13/25 12:38 Family History Brother Diabetes Cancer CHF (congestive heart failure) Surgical History History of cholecystectomy History of colonoscopy (~05/2017) Social History (Updated 01/13/25 @ 15:[address] Ramsey Knight MD) household members: spouse Smoking Status: Never smoker ROS ROS Narrative General: Febrile in the ED HENT: Denies headache, denies stuffy nose, denies sore throat EYES: Denies changes in vision Resp: Denies cough, denies shortness of breath Cardiac: Denies chest pain GI: Denies abdominal pain, denies changes in bowel, denies nausea/vomiting : Denies changes in urination Extremity: Denies swelling MSK: Denies weakness, not presently having any back pain, apparently had had some mid back pain for couple of days but none at present Neuro: Denies any numbness/tingling Heme: Denies any bleeding or bruising Skin: Denies rashes Psychiatric: No complaints voiced Vital Signs Vital Signs Vital Signs: 01/13/25 12:30 01/13/25 12:31 01/13/25 12:58 Temperature 103.2 F H 103 F H Temperature Source Oral Oral Pulse Rate 107 H 99 Respiratory Rate 42 H 38 H Respiratory Effort Respiratory Pattern Tachypnea Blood Pressure 134/88 H 139/84 H Blood Pressure Mean 103 102 Pulse Ox 91 94 Oxygen Delivery Method Room Air Room Air 01/13/25 13:32 01/13/25 14:15 01/13/25 15:09 Temperature 103.6 F H 103.4 F H Temperature Source Core Core Pulse Rate 81 76 Respiratory Rate 28 H 28 H Respiratory Effort Normal Non-Labored Respiratory Pattern Normal Blood Pressure 154/78 H 142/78 H Blood Pressure Mean 103 99 Pulse Ox 92 95 Oxygen Delivery Method Room Air Room Air 01/13/25 15:11 01/13/25 16:00 01/13/25 16:38 Temperature 102.3 F H 101.5 F H 101.6 F H Temperature Source Core Core Core Pulse Rate 68 Respiratory Rate 20 H Respiratory Effort Respiratory Pattern Blood Pressure 130/78 H Blood Pressure Mean 95 Pulse Ox 93 Oxygen Delivery Method Room Air 01/13/25 17:00 01/13/25 17:00 01/13/25 17:37 Temperature 101.6 F H 102.1 F H Temperature Source Core Core Pulse Rate 69 Respiratory Rate 20 H Respiratory Effort Respiratory Pattern Blood Pressure 142/82 H 142/82 H Blood Pressure Mean 102 102 Pulse Ox 94 Oxygen Delivery Method Room Air 01/13/25 18:00 01/13/25 18:19 01/13/25 18:49 Temperature 103.9 F H 103.9 F H 104.8 F H Temperature Source Core Core Core Pulse Rate 86 Respiratory Rate 24 H Respiratory Effort Respiratory Pattern Blood Pressure 144/90 H Blood Pressure Mean 108 Pulse Ox 94 Oxygen Delivery Method Room Air 01/13/25 19:00 Temperature 104.9 F H Temperature Source Core Pulse Rate 85 Respiratory Rate 27 H Respiratory Effort Respiratory Pattern Blood Pressure 147/81 H Blood Pressure Mean 103 Pulse Ox 93 Oxygen Delivery Method Room Air Weight Weight: 91.3 kg Body Mass Index (BMI) 30.6 Physical Exam Narrative General: Alert, oriented, no apparent distress, is warm to the touch and a little bit sweaty HEENT: normocephalic, did not appreciate any streaking or concerning abnormalities on examination of oral cavity Eyes: Anicteric, normal conjunctiva, extraocular movements grossly intact Neck: Supple, did not appreciate any swollen lymph nodes, any tenderness, no overt abnormalities on palpation appreciated Respiratory: Clear to auscultation bilaterally, normal respiratory effort Cardiovascular: Regular rate and rhythm GI: Soft, nontender, nondistended Extremities: No edema Musculoskeletal: Moving all extremities, no pain on palpation over spine Neuro: No overt focal neurological deficits Skin: No rashes appreciated Psych: Cooperative Results Lab / Micro Data 01/13/25 12:40 01/13/25 12:40 Labs: Laboratory Results - last 24 hr 01/13/25 12:40: WBC 6.8, RBC 4.58 L, Hgb 15.4, Hct 43.2, MCV 94.3 H, MCH 33.6 H, MCHC 35.6, RDW Std Deviation 42.8, RDW Coeff of Ty 12.2, Plt Count 81 L, MPV 10.7, Immature Gran % (Auto) 0.400, Neut % (Auto) 71.9 H, Lymph % (Auto) 13.8 L, Bowman % (Auto) 13.6 H, Eos % (Auto) 0.0, Baso % (Auto) 0.3, Absolute Neuts (auto) 4.9, Absolute Lymphs (auto) 0.93, Nucleated RBC % 0, Platelet Estimate MOD DEC, PT 14.9, INR 1.1, APTT 28.8, Sodium 137, Potassium 3.9, Chloride 101, Carbon Dioxide 18.3 L, Anion Gap 18 H, BUN 16, Creatinine 1.13, Estim Creat Clear Calc 58.15, Est GFR (MDRD) Non-Af 66, BUN/Creatinine Ratio 14.2, Glucose 144 H, Calcium 9.2 01/13/25 12:56: POC Glucose 176 H 01/13/25 13:10: Urine Color Yellow, Urine Clarity Clear, Urine pH 6.0, Ur Specific [place] 1.015, Urine Protein Negative, Urine Glucose (UA) 1000 H, Urine Ketones 15 H, Urine Occult Blood 10 H, Urine Nitrite Negative, Urine Bilirubin Negative, Urine Urobilinogen Normal, Ur Leukocyte Esterase Negative 01/13/25 18:10: Lactic Acid 3.3 H* Micro: Microbiology 01/13/25 18:15 Mucosa - Nose SARS-CoV-2, Influenza & RSV (PCR) - Final Imaging Radiology Impression Chest X-Ray 01/13/25 13:51 IMPRESSION: NO ACUTE FINDINGS. Reading Location: [facility] Assessment & Plan Assessment/Plan (1) Febrile illness, acute: PLAN: Plan # Suspect sepsis with unclear source at this time - UA does not appear infectious, chest x-ray with no acute process - White blood cell count within normal limits but platelets are low at 81, patient with bicarb of 18.3 and an anion gap of 18 with lactic acid of 3.3 - Patient has been persistently febrile with temperature as high as 104.9 despite initial dose of Tylenol - Additionally tachycardic on presentation with pulse rate of 107, respiratory rate of 42 and has remained elevated in high 20s to 30s - Patient denies any stiff neck, changes in vision, headache, 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 or involvement, denies any other focal or localizing signs or symptoms, recently had a crown done after filling fell out but there was no infection or reportedly invasive measures - Had some vague mid back pain when he had been up moving around over a couple of days but no pain on palpation and not having it at present and no alarm symptoms - COVID-negative but will check respiratory panel - IV fluids - Broad-spectrum antibiotics - CT abd/pelvis/chest with no acute process - Will consult ID for assistance given lack of source - Blood culture sent and pending - Pro-Marty and CPK ordered - Given patient febrile up to almost 105 with tachycardia and tachypnea and elevated lactic acid with high anion gap and low bicarb with unclear source of possible sepsis and unclear trajectory do think it is reasonable to monitor patient in ICU overnight, if him proved and stable could consider transferring out tomorrow #Type 2 diabetes mellitus -Glucose checks and sliding scale insulin - Holding home oral hypoglycemics but will continue long-acting insulin though at lower dose given glucose 144 and want to avoid hypoglycemia #Hypertension - Given acute febrile illness of unclear etiology we will hold home medications for now #DVT ppx: Lovenox subcu Lizzette Anthony MD Sepsis Attestation Sepsis Alert: Yes Sepsis Attestation: Agree w/Sepsis Date exam was performed: 01/13/25 Time exam was performed: 18:30 Possible Source of Sepsis: Unknown Sepsis Organ Dysfunction Criteria Present: Platelets <100,000 / uL, Lactic Acid > 2 mmol/L and Serum CO2 < 20 mmol/L (on BMP) Fluid Resuscitation Fluid resuscitation indicated?: Yes Fluid Resuscitation ordered: 30 ml/kg fluid bolus ordered Amount of fluid ordered: 3,000 Sepsis Note Date exam was performed: 01/13/25 Time exam was performed: 20:45 Sepsis Attestation: Sepsis re-evaluation was performed (Pt not hypotensive before, still not hypotensive) Charges/Coding Visit Charges Inpatient E&M: 89183 Init Hosp L2
--- OUTSIDE RECORDS SUMMARY | 2025-01-13 19:34 | XMS RPT_ITS | CCD ---
Author Organization [place] [facility] Care Team Providers Care International Trade Compliance Manager Name Role Phone No, Pcp (Historical) Primary Care Provider Unava ilable Allyn Jo Attending [facility] [facility] Unavailable Allyn Jo Referring Unavailable [facility] Primary Care Unavailable PRTAIMA SOLORIO Referring Unavailable PRATIMA SOLORIO Attending Unavailable Allergies Allergy Classification Reported Allergen(s) Allergy Type Date of Onset Reaction(s) Facility (1 source) agresso [Other] Propensity to adverse reactions 5 Vomiting [facility] Work Phone: (1 source) Apple extract Drug Allergy 4 Swelling, Other: See Comments [facility] (1 source) Aspirin / Dipyridamole Drug Allergy 7 Vomiting, Other: See Comments [facility] (1 source) OTHER; Translations: [OTHER] Propensity to adverse reactions (disorder) 5 [facility] Medications Current Medications Medication Drug Class(es) [...] take 1 tablet by mouth once daily pnxskxm-jappvopsd-mw tamin D3 500 mg-5 mcg (200 unit) [...] on above: Take one(1) tablet d aily. Duqlv-3-OQR-EPA-Fish Oil (FISH OIL) 1,000 (120-180) mg cap (1 source) Start: 11-28-19 24 take 1 capsule by mouth twice daily Lbqay-5-ELU-EPA-Fish Oil (FISH OIL) 1,000 (120-180) mg cap [...] Reference Range Facil darek Keen 05-29-2024 Liver [facility] Imaging Services [address] [place], [place] [id number] Liver MR#: [id number] Acct: [id number] Name: IBIS WOODWARD Rep #: [id number] : 1945 M 79 From: Luis Alfredo Payton MD PCP: [facility] Status: REG CLI Study: Liver Date of Exam: 05/29/24 Exam# [id number] Ordering Dr: Allyn Jo LABOR CREW SUPERVISOR- [id number] STUDY: ABDOMINAL ULTRASOUND - RIGHT UPPER QUADRANT [...] at 11:26 EST , CC: WALTER Jo; [facility] Director [employer] Storage Engineering: [facility] [facility] Office Visit (UCWSTR ) IBIS WOODWARD ([id number]) 1945 M Date Time Provider Department 04/27/24 7:30 AM GOLD WILEY [facility] During your visit today, we recorded the following information about you: Pulse Respiration Blood pressure Weight 75/minute 18/minute 120/76 80 kg Gold Wiley MD 04/27/2024 8:01 AM Signed Patient presents with: Tick Bite: Left side x 1 day, redness, some soreness HPI: Skin Lesion: Location: left lower abdomen Duration: noticed yesterday. Unknown duration. Cut a shrub in [place] 4 days ago. Has mowed his own yard this week. Has cats and dogs at home. Pruritis/Pain: hurts Drainage/blister/pustul e/ulceration: red around a tick. Denies fever, myalgia, arthralgia, rash, malaise. Treatment: tried to remove MEDICATIONS: cholecalciferol (VITAMIN D3) 1,000 unit tab tablet Take 1,000 Units by mouth once daily. Wfenm-7-TWD-EPA-Fish Oil (FISH OIL) 1,000 (120-180) mg cap Take 1 capsule by mouth two times a day. lisinopril-hydroCHLOROt hiazide (ZESTORETIC) 20-12.5 mg per tablet Take 1 tablet by mouth once daily. iqsfkhk-iagdsfrlw-ohjrk in D3 500 mg-5 mcg (200 unit) [...] Comments Date Reviewed: 04/27/2024 Reviewed by: Mickie Bryna LPN - Fully Assessed Reason for Visit: [...] 1,000 Units by mouth once daily. - Ydjiu-6-QMC-EPA-Fish Oil (FISH OIL) 1,000 (120-180) mg cap Take 1 capsule by mouth two times a day. - lisinopril-hydroCHLOROt hiazide (ZESTORETIC) 20-12.5 mg per tablet Take 1 tablet by mouth once daily. - uarflhi-roydzdlbo-mjagp in D3 500 mg-5 mcg (200 unit) [...] Service: OFFICE/OUTPATIENT ESTABLISHED MOD MDM 30 MIN [89709] Encounter Status:Closed by GOLD WILEY on 04/27/24 Normal [facility] 08-31-2023 Liver [facility] Imaging Services [address] [place] [address] Liver MR#: [id number] Acct: [id number] Name: IBIS WOODWARD Rep #: [id number] : 1945 M 78 From: Giuseppe carreon MD PCP: [facility] Status: REG CLI Study: Liver Date of Exam: 08/31/23 Exam# [id number] Ordering Dr: ALLYN JO [id number] STUDY: ABDOMINAL ULTRASOUND - RIGHT UPPER QUADRANT [...] at 10:36 EST , CC: ALLYN JO; [facility] Director [employer]gen Storage Engineering: Signed Normal [facility] Vital Signs Date Time Vital Sign Value Performing Clinician Faci deony 04-27-2024 07:41-0400 Body weight 80 kg Gold Wiley MD Work Phone: [facility] 04-27-2024 07:41-0400 Diastolic blood pressure 76 mm[Hg] Gold Wiley MD Work Phone: [facility] 04-27-2024 07:41-0400 Heart rate 75 /min Gold Wiley MD Work Phone: [facility] 04-27-2024 07:41-0400 Respiratory rate 18 /min Gold Wiley MD Work Phone: [facility] 04-27-2024 07:41-0400 SaO2% (BldA) [Mass fraction] 98 % Gold Wiley MD Work Phone: [facility] 04-27-2024 07:41-0400 Systolic blood pressure 120 mm[Hg] Gold Wiley MD Work Phone: [facility] 03-30-2023 08:28-0400 Body temperature 98.01 [degF] Richard Baker APRN.BLASTER HELPER Work Phone: [facility] 03-30-2023 08:28-0400 Body weight 84.01 kg Richard Baker APRN.BLASTER HELPER Work Phone: [facility] 03-30-2023 08:28-0400 Diastolic blood pressure 80 mm[Hg] Richard Baker APRN.BLASTER HELPER Work Phone: [facility] 03-30-2023 08:28-0400 Heart rate 70 /min Richard Baker APRN.BLASTER HELPER Work Phone: [facility] 03-30-2023 08:28-0400 Respiratory rate 18 /min Richard Baker APRN.BLASTER HELPER Work Phone: [facility] 03-30-2023 08:28-0400 SaO2% (BldA) [Mass fraction] 95 % Richard Baker DIABETOLOGIST.BLASTER HELPER Work Phone: [facility] 03-30-2023 08:28-0400 Systolic blood pressure 130 mm[Hg] Richard Baker APRN.BLASTER HELPER Work Phone: [facility] Encounters Encounter Date Encounter Type Care Provider Facility Start: 05-29-2024 End: 05-29-2024 ambulatory [facility] Facility:[facility] Start: 04-27-2024 End: 04-27-2024 ambulatory Facility:[facility] Start: 04-27-2024 End: 04-27-2024 Office outpatient visit 25 minutes Gold Wiley MD Work Phone: [facility] Comment on above: Tick bite of abdomen , initial encounter (Primary Dx) Start: 08-31-2023 End: 08-31-2023 ambulatory [facility] Facility:[facility] Start: 03-30-2023 End: 03-30-2023 Patient encounter procedure Richard Baker APRN.BLASTER HELPER Work Phone: [facility] Comment on above: Tick bite of right h ip, initial encounter (Primary Dx); Skin lesion Plan of Treatment Date Care Activity Detail Author Start: 11-07-2033 Urine microalbumin profile DTaP,Tdap,Td Vaccine (4 - Td or Tdap) [facility] Start: 03-11-2024 Covid-19 Vaccine ( season) Covid-19 Vaccine ( season) [facility] Start: 03-11-2024 Influenza vaccination Influenza Vacc ine (#1) [facility] Start: 07-11-2023 Advance Directive Discussion Advance Directive Discussion [facility] Start: 03-11-2023 Influenza vaccination Influenza Vacc ine (#1) [facility] Start: 07-11-2022 Advance Directive Discussion Advance Directive Discussion [facility] Start: 07-11-2022 Depression Assessment Depression Ass essment [facility] Start: 2020 RSV Vaccine (1 - 1-d ose 75+ series) RSV Vaccine (1 - 1-dose 75+ series) [facility] Start: 06-28-2019 Urine microalbumin profile DTaP,Tdap,Td Vaccine (2 - Td or Tdap) [facility] Start: 02-04-2015 Shingrix Vaccine (2 of 3) Shingrix V accine (2 of 3) [facility] Start: 2010 Pneumococcal Vaccine : 65+ (1 - PCV) Pneumococcal Vaccine: 65+ (1 - PCV) [facility] Start: 1995 Shingrix Vaccine (1 of 2) Shingrix V accine (1 of 2) [facility] Start: 1990 Diabetes Screening Diabetes Screenin g [facility] Start: 1963 Anxiety Screening Anxiety Screening [facility] Start: 1963 Depression Screening Depression Scre ening [facility] Start: 1963 Hepatitis C Screening Hepatitis C [facility] Start: 1963 Hepatitis C screening Hepatitis C [facility] Start: 1945 Covid-19 Vaccine (#1) Covid-19 Vacci ne (#1) [facility] Immunizations Immunization Date Immunization Notes Care Provider Fa sheri 11-08-2023 tetanus toxoid, redu lewis diphtheria toxoid, and acellular pertussis vaccine, adsorbed Gold Wiley MD Work Phone: [facility] 04-30-2020 influenza (HD-IIV4) vaccine, age 65+ yr, high dose, quadrivalent, PF (FLUZONE HIGH-DOSE) Gold Wiley MD Work Phone: [facility] 04-30-2020 pneumococcal polysaccharide vaccine, 23 valent Gold Wiley MD Work Phone: [facility] 04-30-2020 influenza virus vacc ine, unspecified formulation Gold Wiley MD Work Phone: [facility] 05-04-2019 Seasonal trivalent influenza vaccine, adjuvanted, preservative free Gold Wiley MD Work Phone: [facility] 01-23-2019 pneumococcal polysaccharide vaccine, 23 valent Gold Wiley MD Work Phone: [facility] 07-26-2018 Seasonal trivalent influenza vaccine, adjuvanted, preservative free Gold Wiley MD Work Phone: [facility] 07-27-2017 influenza, high dose seasonal, preservative-free Gold Wiley MD Work Phone: [facility] 07-27-2017 influenza virus vacc ine, unspecified formulation Richard King PAT Work Phone: [facility] 08-04-2016 influenza, seasonal, injectable Gold Wiley MD Work Phone: [facility] 06-16-2015 influenza, seasonal, injectable Gold Wiley MD Work Phone: [facility] 03-13-2015 pneumococcal conjuga te vaccine, 13 valent Gold Wiley MD Work Phone: [facility] 12-10-2014 zoster vaccine, live Gold Nath MD Work Phone: [facility] 05-13-2014 influenza virus vacc ine, unspecified formulation Gold Wiley MD Work Phone: [facility] 05-17-2013 influenza virus vacc ine, unspecified formulation Gold Wiley MD Work Phone: [facility] 02-28-2013 tetanus toxoid, redu lewis diphtheria toxoid, and acellular pertussis vaccine, adsorbed Gold Wiley MD Work Phone: [facility] 03-16-2012 influenza virus vacc ine, unspecified formulation Gold Wiley MD Work Phone: [facility] 03-11-2012 influenza virus vacc ine, unspecified formulation Gold Wiley MD Work Phone: [facility] 04-21-2011 influenza virus vacc ine, unspecified formulation Gold Wiley MD Work Phone: [facility] 05-19-2010 influenza virus vacc ine, unspecified formulation Gold Wiley MD Work Phone: [facility] 10-21-2009 novel influenza-H1N1 -09, all formulations Gold Wiley MD Work Phone: [facility] 06-28-2009 tetanus toxoid, redu lewis diphtheria toxoid, and acellular pertussis vaccine, adsorbed Richard Samuel DIABETOLOGIST.BLASTER HELPER Work Phone: [facility] Work Phone: 04-24-2009 influenza virus vacc ine, unspecified formulation Gold Wiley MD Work Phone: [facility] 05-11-2008 influenza virus vacc ine, unspecified formulation Gold Wiley MD Work Phone: [facility] 04-18-2007 influenza virus vacc elaine, unspecified formulation Gold Wiley MD Work Phone: [facility] 05-10-2006 influenza virus vacc ine, unspecified formulation Gold Wiley MD Work Phone: [facility] 05-04-2005 influenza virus vacc ine, unspecified formulation Gold Wiley MD Work Phone: [facility] 06-02-2004 pneumococcal vaccine , unspecified formulation Gold Wiley MD Work Phone: [facility] 06-10-2003 influenza virus vacc ine, unspecified formulation Gold Wiley MD Work Phone: [facility] Payers Date Payer Category Payer Self-pay 2023 Unknown [id number] 2021 Unknown [id number] 2021 Medicare [id number] Unknown [id number] Unknown [id number] Social History Date Type Detail Facility Start: 03-30-2023 End: 04-27-2024 Tobacco smoking status NHIS Ex-smoker [facility] End: 10-30-1964 History of tobacco use Current smoker [facility] End: 10-30-1964 History of tobacco use Cigarette Smoker [facility] Start: 03-30-2023 End: 04-27-2024 Alcohol intake Current non-drinker of alcohol (finding) [facility] Start: 03-30-2023 End: 04-27-2024 History of Social function [facility] Start: 03-30-2023 End: 04-27-2024 Tobacco use panel [facility] Start: 1945 Sex Assigned At Not on file [facility] Progress note 04-27-2024 Note Date & Type Note Facility 04-27-2024 Note HNO ID: [id number] Author: GOLD WILEY MD Service: ? Author Type: Physician Type: Progress Notes Filed: 04/27/2024 08:01 Note Text: Patient presents with: Tick Bite: Left side x 1 day, redness, some soreness HPI: Skin Lesion: Location: left lower abdomen Duration: noticed yesterday. Unknown duration. Cut a shrub in [place] 4 days ago. Has mowed his own yard this week. Has cats and dogs at home. Pruritis/Pain: hurts Drainage/blister/pustule/ulceration: red around a tick. Denies fever, myalgia, arthralgia, rash, malaise. Treatment: tried to remove MEDICATIONS: cholecalciferol (VITAMIN D3) 1,000 unit tab tablet Take 1,000 Units by mouth once daily. Ydwoa-1-RBZ-EPA-Fish Oil (FISH OIL) 1,000 (120-180) mg cap Take 1 capsule by mouth two times a day. lisinopril-hydroCHLOROthiazide (ZESTORETIC) 20-12.5 mg per tablet Take 1 tablet by mouth once daily. hphuusn-boxajucsp-qdctwdu D3 500 mg-5 mcg (200 unit) per [...] drainage, rash, or fever/malaise. Gold Wiley MD [facility] History of Present illness Narrative 04-27-2024 Gold Wiley MD - 04/27/2024 7:53 AM EDT Note Date & Type Note Facility 04-27-2024 History of Presen t illness Narrative Patient presents with: Tick Bite: Left side x 1 day, redness, some soreness HPI: Skin Lesion: Location: left lower abdomen Duration: noticed yesterday. Unknown duration. Cut a shrub in [place] 4 days ago. Has mowed his own yard this week. Has cats and dogs at home. Pruritis/Pain: hurts Drainage/blister/pustule/ulceration: red around a tick. Denies fever, myalgia, arthralgia, rash, malaise. Treatment: tried to remove MEDICATIONS: cholecalciferol (VITAMIN D3) 1,000 unit tab tablet Take 1,000 Units by mouth once daily. Dmwue-8-IZR-EPA-Fish Oil (FISH OIL) 1,000 (120-180) mg cap Take 1 capsule by mouth two times a day. lisinopril-hydroCHLOROthiazide (ZESTORETIC) 20-12.5 mg per tablet Take 1 tablet by mouth once daily. fmnvjul-wrrqoxtax-jrroetp D3 500 mg-5 mcg (200 unit) per [...] Gold Wiley MD documented in this encounter [facility] History of Present illness Narrative 03-30-2023 Richard Baker APRN.BLASTER HELPER - 03/30/2023 8:36 AM EDT Note Date [...] nothing. Risk factors was recently out in [place]. Denies cp/sob, fever, body aches, flu like [...] DOXYCYCLINE MONOHYDRATE 100 MG TABLET Richard Baker APRN.BLASTER HELPER documented in this encounter [facility] Evaluation note Note Date & Type Note Facility Evaluation note Diagnosis Tick bite of right hip, initial encounter- Primary Skin lesion Unspecified disorder of skin and subcutaneous tissue documented in this encounter [facility] Evaluation note Note Date & Type Note Facility Evaluation note Diagnosis Tick bite of abdomen, initial encounter- Primary documented in this encounter [facility] Summary Purpose Family History No Family History [...] or prosecute any alcohol or drug abuse patient.[facility] the event this information is protected by the Federal Confidentiality of Alcohol and Drug Abuse Patient Records regulations: The Federal rules restrict any use of the information to criminally investigate or prosecute any alcohol or drug abuse patient.[facility] Reason for Visit (unrecogniz ed section and content) Reason Comments Tick Bite Right back of thigh x 1 day Reason Comments Tick Bite Left side x 1 day, r edness, some soreness Care Teams (unrecognized sec tion and content) International Trade Compliance Manager Relationship Specialty Start Date End Date No, Pcp (Historical) PCP - General 11/24/15 International Trade Compliance Manager Relationship Specialty Start Date End Date No, Pcp (Historical) PCP - General 11/24/15 (unrecognized sect ion and content) No Status Records FoundNo Status Records Found INFORMATION SOURCE (unrecogn ized section and content) DATE CREATED AUTHOR 04/29/2024 [facility] DATE CREATED AUTHOR AUTHOR'S ORGANIZ ATION 07/01/2024 [facility] FOR RECORDS PERTAINING TO PATIENTS WHO [...] BE BASED ON THE PRIMARY CLINICAL RECORDS. [employer] provides no warranty or guarantee of the accuracy or completeness of information in this document.
--- OUTSIDE RECORDS SUMMARY | 2025-01-13 19:34 | XMS RPT_ITS | CCD ---
Author Organization [facility] Care Team Providers Care Manager Interface Name Role Phone No, Pcp (Historical) Primary Care Provider Unava ilable Allyn Jo Attending Unavailable [facility] [place] Primary Care Unavailable Allyn Jo Referring Unavailable [facility], [place] Primary Care Unavailable PRATIMA SOLORIO Referring Unavailable PRATIMA SOLORIO Attending Unavailable Allergies Allergy Classification Reported Allergen(s) Allergy Type Date of Onset Reaction(s) Facility (1 source) agresso [Other] Propensity to adverse reactions 5 Vomiting [facility] Work Phone: (1 source) Apple extract Drug Allergy 4 Swelling, Other: See Comments [facility] (1 source) Aspirin / Dipyridamole Drug Allergy 7 Vomiting, Other: See Comments [facility] (1 source) OTHER; Translations: [OTHER] Propensity to adverse reactions (disorder) 5 [facility] [place] [facility] Medications Current Medications Medication Drug Class(es) [...] take 1 tablet by mouth once daily ulydjid-jtjflesjj-mg tamin D3 500 mg-5 mcg (200 unit) [...] on above: Take one(1) tablet d aily. Takqw-5-RTW-EPA-Fish Oil (FISH OIL) 1,000 (120-180) mg cap (1 source) Start: 11-28-19 24 take 1 capsule by mouth twice daily Xdxxw-0-FGH-EPA-Fish Oil (FISH OIL) 1,000 (120-180) mg cap [...] Reference Range Facil darek Keen 05-29-2024 Liver [facility] Imaging Services [address] [place], [place] [id number] Liver MR#: [id number] Acct: [id number] Name: IBIS WOODWARD Rep #: [id number] : 1945 M 79 From: Luis Alfredo Payton MD PCP: [facility] Status: REG CLI Study: Liver Date of Exam: 05/29/24 Exam# [id number] Ordering Dr: Allyn Jo UTILIZATION MANAGEMENT RN- C [id number] STUDY: ABDOMINAL ULTRASOUND - RIGHT UPPER QUADRANT [...] at 11:26 EST , CC: WALTER Jo; [facility] Shopping Investigator: Signed [facility] Office Visit (UCWSTR ) IBIS WOODWARD ([id number]) 1945 M Date Time Provider Department 04/27/24 7:30 AM GOLD WILEY [facility] During your visit today, we recorded the following information about you: Pulse Respiration Blood pressure Weight 75/minute 18/minute 120/76 80 kg Gold Wiley MD 04/27/2024 8:01 AM Signed Patient presents with: Tick Bite: Left side x 1 day, redness, some soreness HPI: Skin Lesion: Location: left lower abdomen Duration: noticed yesterday. Unknown duration. Cut a shrub in [place] 4 days ago. Has mowed his own yard this week. Has cats and dogs at home. Pruritis/Pain: hurts Drainage/blister/pustul e/ulceration: red around a tick. Denies fever, myalgia, arthralgia, rash, malaise. Treatment: tried to remove MEDICATIONS: cholecalciferol (VITAMIN D3) 1,000 unit tab tablet Take 1,000 Units by mouth once daily. Bixsg-2-KHX-EPA-Fish Oil (FISH OIL) 1,000 (120-180) mg cap Take 1 capsule by mouth two times a day. lisinopril-hydroCHLOROt hiazide (ZESTORETIC) 20-12.5 mg per tablet Take 1 tablet by mouth once daily. lcccrnw-dcfqducjo-ybuxq in D3 500 mg-5 mcg (200 unit) [...] 1,000 Units by mouth once daily. - Jlrfx-9-EJX-EPA-Fish Oil (FISH OIL) 1,000 (120-180) mg cap Take 1 capsule by mouth two times a day. - lisinopril-hydroCHLOROt hiazide (ZESTORETIC) 20-12.5 mg per tablet Take 1 tablet by mouth once daily. - vghyxxs-cxsbnvkwz-zmtvi in D3 500 mg-5 mcg (200 unit) [...] Service: OFFICE/OUTPATIENT ESTABLISHED MOD MDM 30 MIN [57612] Encounter Status:Closed by GOLD WILEY on 04/27/24 Normal [facility] 08-31-2023 Liver [facility] Imaging Services [address] [place] [address] Liver MR#: [id number] Acct: [id number] Name: IBIS WOODWARD Rep #: [id number] : 1945 M 78 From: Giuseppe carreon MD PCP: [facility] Status: REG CLI Study: Liver Date of Exam: 08/31/23 Exam# [id number] Ordering Dr: ALLYN JO [id number] STUDY: ABDOMINAL ULTRASOUND - RIGHT UPPER QUADRANT [...] at 10:36 EST , CC: ALLYN JO; [facility] Shopping Investigator: Signed Normal [facility] Vital Signs Date Time Vital Sign Value Performing Clinician Faci deony 04-27-2024 07:41-0400 Body weight 80 kg Gold Wiley MD Work Phone: [facility] 04-27-2024 07:41-0400 Diastolic blood pressure 76 mm[Hg] Gold Wiley MD Work Phone: [facility] 04-27-2024 07:41-0400 Heart rate 75 /min Gold Wiley MD Work Phone: [facility] 04-27-2024 07:41-0400 Respiratory rate 18 /min Gold Wiley MD Work Phone: [facility] 04-27-2024 07:41-0400 SaO2% (BldA) [Mass fraction] 98 % Gold Wiley MD Work Phone: [facility] 04-27-2024 07:41-0400 Systolic blood pressure 120 mm[Hg] Gold Wiley MD Work Phone: [facility] 03-30-2023 08:28-0400 Body temperature 98.01 [degF] Richard Baker APRN.BOX SEALING INSPECTOR Work Phone: [facility] 03-30-2023 08:28-0400 Body weight 84.01 kg Richard Baker APRN.BOX SEALING INSPECTOR Work Phone: [facility] 03-30-2023 08:28-0400 Diastolic blood pressure 80 mm[Hg] Richard Baker APRN.BOX SEALING INSPECTOR Work Phone: [facility] 03-30-2023 08:28-0400 Heart rate 70 /min Richard Baker APRN.BOX SEALING INSPECTOR Work Phone: [facility] 03-30-2023 08:28-0400 Respiratory rate 18 /min Richard Baker APRN.BOX SEALING INSPECTOR Work Phone: [facility] 03-30-2023 08:28-0400 SaO2% (BldA) [Mass fraction] 95 % Richard Baker BLANKET CUTTER HAND.BOX SEALING INSPECTOR Work Phone: [facility] 03-30-2023 08:28-0400 Systolic blood pressure 130 mm[Hg] Richard Baker APRN.BOX SEALING INSPECTOR Work Phone: [facility] Encounters Encounter Date Encounter Type Care Provider Facility Start: 05-29-2024 End: 05-29-2024 ambulatory [facility] Facility:[facility] Start: 04-27-2024 End: 04-27-2024 ambulatory Facility:[facility] Start: 04-27-2024 End: 04-27-2024 Office outpatient visit 25 minutes Gold Wiley MD Work Phone: [facility] Comment on above: Tick bite of abdomen , initial encounter (Primary Dx) Start: 08-31-2023 End: 08-31-2023 ambulatory [facility] Facility:[facility] Start: 03-30-2023 End: 03-30-2023 Patient encounter procedure Richard Baker APRN.BOX SEALING INSPECTOR Work Phone: [facility] Comment on above: Tick bite of right h ip, initial encounter (Primary Dx); Skin lesion Plan of Treatment Date Care Activity Detail Author Start: 11-07-2033 Urine microalbumin profile DTaP,Tdap,Td Vaccine (4 - Td or Tdap) [facility] Start: 03-11-2024 Covid-19 Vaccine ( season) Covid-19 Vaccine ( season) [facility] Start: 03-11-2024 Influenza vaccination Influenza Vacc ine (#1) [facility] Start: 07-11-2023 Advance Directive Discussion Advance Directive Discussion [facility] Start: 03-11-2023 Influenza vaccination Influenza Vacc ine (#1) [facility] Start: 07-11-2022 Advance Directive Discussion Advance Directive Discussion [facility] Start: 07-11-2022 Depression Assessment Depression Ass essment [facility] Start: 2020 RSV Vaccine (1 - 1-d ose 75+ series) RSV Vaccine (1 - 1-dose 75+ series) [facility] Start: 06-28-2019 Urine microalbumin profile DTaP,Tdap,Td Vaccine (2 - Td or Tdap) [facility] Start: 02-04-2015 Shingrix Vaccine (2 of 3) Shingrix V accine (2 of 3) [facility] Start: 2010 Pneumococcal Vaccine : 65+ (1 - PCV) Pneumococcal Vaccine: 65+ (1 - PCV) [facility] Start: 1995 Shingrix Vaccine (1 of 2) Shingrix V accine (1 of 2) [facility] Start: 1990 Diabetes Screening Diabetes Screenin g [facility] Start: 1963 Anxiety Screening Anxiety Screening [facility] Start: 1963 Depression Screening Depression Scre ening [facility] Start: 1963 Hepatitis C Screening Hepatitis C Sc [facility] Start: 1963 Hepatitis C screening Hepatitis C [facility] Start: 1945 Covid-19 Vaccine (#1) Covid-19 Vacci ne (#1) [facility] Immunizations Immunization Date Immunization Notes Care Provider Fa sheri 11-08-2023 tetanus toxoid, redu lewis diphtheria toxoid, and acellular pertussis vaccine, adsorbed Gold Wiley MD Work Phone: [facility] 04-30-2020 influenza (HD-IIV4) vaccine, age 65+ yr, high dose, quadrivalent, PF (FLUZONE HIGH-DOSE) Gold Wiley MD Work Phone: [facility] 04-30-2020 pneumococcal polysaccharide vaccine, 23 valent Gold Wiley MD Work Phone: [facility] 04-30-2020 influenza virus vacc ine, unspecified formulation Gold Wiley MD Work Phone: [facility] 05-04-2019 Seasonal trivalent influenza vaccine, adjuvanted, preservative free Gold Wiley MD Work Phone: [facility] 01-23-2019 pneumococcal polysaccharide vaccine, 23 valent Gold Wiley MD Work Phone: [facility] 07-26-2018 Seasonal trivalent influenza vaccine, adjuvanted, preservative free Gold Wiley MD Work Phone: [facility] 07-27-2017 influenza, high dose seasonal, preservative-free Gold Wiley MD Work Phone: [facility] 07-27-2017 influenza virus vacc ine, unspecified formulation Richard King PAT Work Phone: [facility] 08-04-2016 influenza, seasonal, injectable Gold Wiley MD Work Phone: [facility] 06-16-2015 influenza, seasonal, injectable Gold Wiley MD Work Phone: [facility] 03-13-2015 pneumococcal conjuga te vaccine, 13 valent Gold Wiley MD Work Phone: [facility] 12-10-2014 zoster vaccine, live Gold Nath MD Work Phone: [facility] 05-13-2014 influenza virus vacc ine, unspecified formulation Gold Wiley MD Work Phone: [facility] 05-17-2013 influenza virus vacc ine, unspecified formulation Gold Wiley MD Work Phone: [facility] 02-28-2013 tetanus toxoid, redu lewis diphtheria toxoid, and acellular pertussis vaccine, adsorbed Gold Wiley MD Work Phone: [facility] 03-16-2012 influenza virus vacc ine, unspecified formulation Gold Wiley MD Work Phone: [facility] 03-11-2012 influenza virus vacc ine, unspecified formulation Gold Wiley MD Work Phone: [facility] 04-21-2011 influenza virus vacc ine, unspecified formulation Gold Wiley MD Work Phone: [facility] 05-19-2010 influenza virus vacc ine, unspecified formulation Gold Wiley MD Work Phone: [facility] 10-21-2009 novel influenza-H1N1 -09, all formulations Gold Wiley MD Work Phone: [facility] 06-28-2009 tetanus toxoid, redu lewis diphtheria toxoid, and acellular pertussis vaccine, adsorbed Richard Samuel BLANKET CUTTER HAND.BOX SEALING INSPECTOR Work Phone: [facility] Work Phone: 04-24-2009 influenza virus vacc ine, unspecified formulation Gold Wiley MD Work Phone: [facility] 05-11-2008 influenza virus vacc ine, unspecified formulation Gold Wiley MD Work Phone: [facility] 04-18-2007 influenza virus vacc elaine, unspecified formulation Gold Wiley MD Work Phone: [facility] 05-10-2006 influenza virus vacc ine, unspecified formulation Gold Wiley MD Work Phone: [facility] 05-04-2005 influenza virus vacc ine, unspecified formulation Gold Wiley MD Work Phone: [facility] 06-02-2004 pneumococcal vaccine , unspecified formulation Gold Wiley MD Work Phone: [facility] 06-10-2003 influenza virus vacc ine, unspecified formulation Gold Wiley MD Work Phone: [facility] Payers Date Payer Category Payer Self-pay 2023 Unknown [id number] 2021 Unknown [id number] 2021 Medicare [id number] Unknown [id number] Unknown [id number] Social History Date Type Detail Facility Start: 03-30-2023 End: 04-27-2024 Tobacco smoking status NHIS Ex-smoker [facility] End: 10-30-1964 History of tobacco use Current smoker [facility] End: 10-30-1964 History of tobacco use Cigarette Smoker [facility] Start: 03-30-2023 End: 04-27-2024 Alcohol intake Current non-drinker of alcohol (finding) [facility] Start: 03-30-2023 End: 04-27-2024 History of Social function [facility] Start: 03-30-2023 End: 04-27-2024 Tobacco use panel [facility] Start: 1945 Sex Assigned At Not on file C [facility] Progress note 04-27-2024 Note Date & Type Note Facility 04-27-2024 Note HNO ID: [id number] Author: GOLD WILEY MD Service: ? Author Type: Physician Type: Progress Notes Filed: 04/27/2024 08:01 Note Text: Patient presents with: Tick Bite: Left side x 1 day, redness, some soreness HPI: Skin Lesion: Location: left lower abdomen Duration: noticed yesterday. Unknown duration. Cut a shrub in [place] 4 days ago. Has mowed his own yard this week. Has cats and dogs at home. Pruritis/Pain: hurts Drainage/blister/pustule/ulceration: red around a tick. Denies fever, myalgia, arthralgia, rash, malaise. Treatment: tried to remove MEDICATIONS: cholecalciferol (VITAMIN D3) 1,000 unit tab tablet Take 1,000 Units by mouth once daily. Uvwyh-6-NRO-EPA-Fish Oil (FISH OIL) 1,000 (120-180) mg cap Take 1 capsule by mouth two times a day. lisinopril-hydroCHLOROthiazide (ZESTORETIC) 20-12.5 mg per tablet Take 1 tablet by mouth once daily. pzbnrsl-bfkgisrvy-vbfgxin D3 500 mg-5 mcg (200 unit) per [...] drainage, rash, or fever/malaise. Gold Wiley MD [facility] History of Present illness Narrative 04-27-2024 Gold Wiley MD - 04/27/2024 7:53 AM EDT Note Date & Type Note Facility 04-27-2024 History of Presen t illness Narrative Patient presents with: Tick Bite: Left side x 1 day, redness, some soreness HPI: Skin Lesion: Location: left lower abdomen Duration: noticed yesterday. Unknown duration. Cut a shrub in [place] 4 days ago. Has mowed his own yard this week. Has cats and dogs at home. Pruritis/Pain: hurts Drainage/blister/pustule/ulceration: red around a tick. Denies fever, myalgia, arthralgia, rash, malaise. Treatment: tried to remove MEDICATIONS: cholecalciferol (VITAMIN D3) 1,000 unit tab tablet Take 1,000 Units by mouth once daily. Ndjnw-4-SRN-EPA-Fish Oil (FISH OIL) 1,000 (120-180) mg cap Take 1 capsule by mouth two times a day. lisinopril-hydroCHLOROthiazide (ZESTORETIC) 20-12.5 mg per tablet Take 1 tablet by mouth once daily. crzcqfh-qmdeacqqu-ldnzizu D3 500 mg-5 mcg (200 unit) per [...] Gold Wiley MD documented in this encounter [facility] History of Present illness Narrative 03-30-2023 Richard Baker APRN.BOX SEALING INSPECTOR - 03/30/2023 8:36 AM EDT Note Date [...] nothing. Risk factors was recently out in [place]. Denies cp/sob, fever, body aches, flu like [...] DOXYCYCLINE MONOHYDRATE 100 MG TABLET Richard Baker APRN.BOX SEALING INSPECTOR documented in this encounter [facility] Evaluation note Note Date & Type Note Facility Evaluation note Diagnosis Tick bite of right hip, initial encounter- Primary Skin lesion Unspecified disorder of skin and subcutaneous tissue documented in this encounter [facility] Evaluation note Note Date & Type Note Facility Evaluation note Diagnosis Tick bite of abdomen, initial encounter- Primary documented in this encounter [facility] Summary Purpose Family History No Family History [...] or prosecute any alcohol or drug abuse patient.[facility] the event this information is protected by the Federal Confidentiality of Alcohol and Drug Abuse Patient Records regulations: The Federal rules restrict any use of the information to criminally investigate or prosecute any alcohol or drug abuse patient.[facility] Reason for Visit (unrecogniz ed section and content) Reason Comments Tick Bite Right back of thigh x 1 day Reason Comments Tick Bite Left side x 1 day, r edness, some soreness Care Teams (unrecognized sec tion and content) Manager Interface Relationship Specialty Start Date End Date No, Pcp (Historical) PCP - General 11/24/15 Manager Interface Relationship Specialty Start Date End Date No, Pcp (Historical) PCP - General 11/24/15 (unrecognized sect ion and content) No Status Records FoundNo Status Records Found INFORMATION SOURCE (unrecogn ized section and content) DATE CREATED AUTHOR 04/29/2024 [facility] DATE CREATED AUTHOR AUTHOR'S ORGANIZ ATION 07/01/2024 [facility] FOR RECORDS PERTAINING TO PATIENTS WHO ARE [...] BE BASED ON THE PRIMARY CLINICAL RECORDS. [employer] provides no warranty or guarantee of the accuracy or completeness of information in this document.
--- NOTE | 2025-01-13 20:47 | ED.RN ---
called lab to inquire about procalcitonin. they had tube to run
[2025-01-13 21:15] LABS: Procalcitonin 0.22 ng/mL (<=0.10)
[2025-01-13 21:29] LABS: CPK Total, Creatine Kinase 104 U/L (24-195)
--- NOTE | 2025-01-13 21:32 | PCM.RX.CS ---
Consult Antibiotic Management Pharmacy has been consulted to manage selected antibiotic: Vancomycin Type of Intervention Type of Consult: New start Suspected Infection Suspected Infection: Sepsis Labs Labs: Sodium 137 mmol/L (133-145) 01/13/25 12:40 Potassium 3.9 mmol/L (3.3-5.1) 01/13/25 12:40 Chloride 101 mmol/L (98-108) 01/13/25 12:40 Carbon Dioxide 18.3 mmol/L (21.0-32.0) L 01/13/25 12:40 Anion Gap 18 (5-15) H 01/13/25 12:40 BUN 16 mg/dL (4-19) 01/13/25 12:40 Creatinine 1.13 mg/dL (0.70-1.20) 01/13/25 12:40 Est GFR (MDRD) Non-Af 66 (>60) 01/13/25 12:40 BUN/Creatinine Ratio 14.2 RATIO (10-20) 01/13/25 12:40 Glucose 144 mg/dL (70-99) H 01/13/25 12:40 Microbiology Microbiology: Microbiology 01/13/25 18:15 Mucosa - Nose SARS-CoV-2, Influenza & RSV (PCR) - Final Dosing Weight Weight used for dosin kg Estimated Creatinine Clearance Estimated Creatinine Clearance: 58 Goal Trough Goal Trough: 15-20 mcg/mL Pharmacy Plan for Drug Dosing Pharmacy Plan for Drug Dosing: Pharmacy Service will continue to monitor and adjust dosing as required. Follow-Up Labs Follow-Up Labs: Trough: Vancomycin Date/Time Labs Ordered Labs to be done on [date and time ordered]: 01/15/25 @0700
[2025-01-13] MEDS: 0.9% Normal Saline (1000mL) 1,000 ML 100 ML IV (22:01)
[2025-01-13] MEDS: Albuterol 2.5 MG/3 ML VIAL.NEB. INHALATION (22:10)
[2025-01-13 22:17] LABS: Reflex Lactate? Y
[2025-01-13] MEDS: 0.9% Saline Lock 10 ML Syringe IV (22:40)
[2025-01-14] VITALS (25 sets, daily range): BP systolic 101–164; BP diastolic 59–103; PULSE 62–101; RESP 14–39; TEMP 37.1–40.2; O2SAT 93–100; BMI 28.0
[2025-01-14] MEDS: 0.9% Normal Saline (250mL Bag) 250 ML 15 ML IV (05:04)
[2025-01-14] MEDS: Piperacil/Tazobactam 3.375 GM in 0.9% Normal Saline (50mL MB+) 50 ML IV (05:04)
[2025-01-14 05:19] LABS: Hematocrit 43.6 % (40-54); Hemoglobin 15.2 g/dL (13.0-16.5); Immature Granulocytes Count 0.020 X10^3/uL (0.0-0.0); Mean Corp Hgb Conc 34.9 g/dL (32-36); Mean Corpuscular Volume 96.9 fL (80-94); Mean Platelet Vol. 10.7 fl (6.2-12.0); NRBC Flagged by Analyzer 0 % (0-5); POSITIVE COUNT YES; Platelet Count 62 K/mm3 (150-450); RBC Distribution Width CV 12.7 % (11.6-14.6); RBC Distribution Width SD 45.1 fl (35.1-43.9); Red Blood Count 4.50 M/mm3 (4.6-6.2); White Blood Count 8.3 K/mm3 (4.4-11.0)
[2025-01-14 06:01] LABS: Magnesium 1.7 mg/dL (1.5-2.2)
[2025-01-14 06:12] LABS: Anion Gap 17 (5-15); BUN 14 mg/dL (4-19); BUN/Creat Ratio 14.1 RATIO (10-20); Calcium,Total 8.0 mg/dL (7.6-11.0); Carbon Dioxide 15.2 mmol/L (21.0-32.0); Chloride 104 mmol/L (98-108); Estimated Creatinine Clearance 64.42 ml/min (50-250); Glucose 129 mg/dL (70-99); Potassium 4.3 mmol/L (3.3-5.1)
--- NOTE | 2025-01-14 07:53 | PCM.PN.HOSP ---
Reason for Visit Reason for Visit: Diagnoses Fever, unspecified (01/13/25) Subjective Subjective Still with high temperatures. Objective Data Objective Data Vital Signs: Vital Signs Temp Pulse Resp BP Pulse Ox O2 Del Method 38.5 C H 66 22 H 119/73 96 Room Air 01/14/25 07:00 01/14/25 07:00 01/14/25 07:00 01/14/25 07:00 01/14/25 07:00 01/14/25 07:00 Oxygen Delivery Method Room Air Weight: 83.7 kg Body Mass Index (BMI) 28.0 Intake & Output: Intake and Output for Last 24 Hours 01/12/25 01/13/25 01/14/25 23:59 23:59 23:59 Intake Total 3640 / 3640 200 / 200 Output Total 1500 / 1500 1300 / 1300 Balance 2140 / 2140 -1100 / -1100 Lab / Micro Data 01/14/25 05:00 01/14/25 05:00 Labs: Laboratory Results - last 24 hr 01/13/25 12:40: WBC 6.8, RBC 4.58 L, Hgb 15.4, Hct 43.2, MCV 94.3 H, MCH 33.6 H, MCHC 35.6, RDW Std Deviation 42.8, RDW Coeff of Ty 12.2, Plt Count 81 L, MPV 10.7, Immature Gran % (Auto) 0.400, Neut % (Auto) 71.9 H, Lymph % (Auto) 13.8 L, [place] % (Auto) 13.6 H, Eos % (Auto) 0.0, Baso % (Auto) 0.3, Absolute Neuts (auto) 4.9, Absolute Lymphs (auto) 0.93, Nucleated RBC % 0, Platelet Estimate MOD DEC, PT 14.9, INR 1.1, APTT 28.8, Sodium 137, Potassium 3.9, Chloride 101, Carbon Dioxide 18.3 L, Anion Gap 18 H, BUN 16, Creatinine 1.13, Estim Creat Clear Calc 58.15, Est GFR (MDRD) Non-Af 66, BUN/Creatinine Ratio 14.2, Glucose 144 H, Calcium 9.2, Total Creatine Kinase 104, Procalcitonin 0.22 H 01/13/25 12:56: POC Glucose 176 H 01/13/25 13:10: Urine Color Yellow, Urine Clarity Clear, Urine pH 6.0, Ur Specific [place] 1.015, Urine Protein Negative, Urine Glucose (UA) 1000 H, Urine Ketones 15 H, Urine Occult Blood 10 H, Urine Nitrite Negative, Urine Bilirubin Negative, Urine Urobilinogen Normal, Ur Leukocyte Esterase Negative 01/13/25 18:10: Lactic Acid 3.3 H* 01/13/25 21:30: POC Glucose 140 H 01/14/25 05:00: WBC 8.3, RBC 4.50 L, Hgb 15.2, Hct 43.6, MCV 96.9 H, MCH 33.8 H, MCHC 34.9, RDW Std Deviation 45.1 H, RDW Coeff of Ty 12.7, Plt Count 62 L, MPV 10.7, Immature Gran % (Auto) 0.200, Neut % (Auto) 83.5 H, Lymph % (Auto) 7.8 L, [place] % (Auto) 8.1, Eos % (Auto) 0.0, Baso % (Auto) 0.4, Absolute Neuts (auto) 6.9, Absolute Lymphs (auto) 0.65 L, Nucleated RBC % 0, Sodium 136, Potassium 4.3, Chloride 104, Carbon Dioxide 15.2 L, Anion Gap 17 H, BUN 14, Creatinine 0.98, Estim Creat Clear Calc 64.42, Est GFR (MDRD) Non-Af 78, BUN/Creatinine Ratio 14.1, Glucose 129 H, Calcium 8.0, Magnesium 1.7, TSH 0.578 Micro: Microbiology 01/13/25 18:15 Mucosa - Nose SARS-CoV-2, Influenza & RSV (PCR) - Final Radiography Diagnostic Testing: Radiology Impression Chest X-Ray 01/13/25 13:51 IMPRESSION: NO ACUTE FINDINGS. Reading Location: [facility] Chest/Abdomen/Pelvis CT 01/13/25 19:06 IMPRESSION: No acute process appreciated. Status post cholecystectomy [facility] Physical Exam Const alert and no apparent distress HEENT head/scalp atraumatic and moist oral mucous membranes Resp normal respiratory effort and no retractions Cardio regular rate, regular rhythm, S1 normal heart sound and S2 normal heart sound GI normal to inspection, nondistended, normoactive bowel sounds, soft to palpation, non-tender and non-distended Extremity normal to inspection and full ROM Skin Skin Narrative: lesion with slight warmth and raised. no fluctuance. Neuro oriented x3, CN's II-XII intact bilaterally, moves all extremities and no focal motor deficits Sensorium / Orientation: awake, alert, oriented to person and oriented to place Assessment & Plan Assessment/Plan (1) Sepsis: PLAN: POA. See H+P for criteria. Unclear source at this time. CT C/A/P negative. UA negative. BCx pending. COVID/Influenza/RSV negative. Pip/tazo and vancomycin (2) Metabolic acidosis: PLAN: positive anion gap and low carbon dioxide add bicarbonate gtt for 1 liter. PLAN: Plan Chronic conditions: DM2: on glargine and SSI. HTN: lisinopril/HCTZ held. VTE prophylaxis: LMWH DW family at bedside. Charges/Coding Visit Charges Inpatient E&M: 11164 Subs Hosp L2
[2025-01-14] MEDS: Vancomycin HCl 750 MG in 0.9% Normal Saline (250mL Bag) 250 ML 250 MG IV ×2 (08:26→20:19)
[2025-01-14] MEDS: Sodium Bicarbonate 100 MEQ in Dextrose 5%-Water (1000mL Bag) 1,000 ML IV (08:56)
--- NOTE | 2025-01-14 13:43 | CT_ITS ---
PROCEDURE: BRAIN/HEAD WITHOUT CONTRAST 01/14/2025 REASON FOR EXAM: SYNCOPE TECHNIQUE: BRAIN/HEAD WITHOUT CONTRAST Coronal and Sagittal reconstruction series were provided. One or more dose reduction techniques were used (e.g., Automated exposure control, adjustment of the mA and/or kV according to patient size, use of iterative reconstruction technique. RADIATION DOSE SUMMARY: CTDlvol: 44.99 mGy DLP: 796.11 mGycm COMPARISON: None FINDINGS: Brain: Low density in the periventricular white matter suggests mild chronic small vessel ischemic changes. Ectasia of the distal portions of the vertebral arteries and basilar tip. CSF Spaces: Moderate generalized cerebral atrophy Sinuses/Mastoids: Clear at visualized levels Bones: Unremarkable CT/Brain/Head without Contrast IMPRESSION: CHRONIC CHANGES. NO ACUTE FINDINGS. Reading Location: [place] [address]
--- NOTE | 2025-01-14 14:30 | CASEMGMT ---
FERN BURTON Assessment Face to Face with patient for initial transition planning/care coordination assessment. FERN BURTON introduced self and role at [facility], pt voices understanding. Pt is A&Ox4 and is resting comfortably in bed and is calm. Care providers, pharmacy, and demographics verified. Admitting dx: Fever LACE Strata: 2 PCP: [place] Specialists: Denies Preferred Pharmacy: [facility] Insurance: [place], [facility] Prescription Benefit: Yes LNOK: Areli (W), Linnea (Daughter) Living Arrangements: Pt lives with his in a single story home with a flat entrance ADLs/IADLs: Indep Transportation: Self, DME: CBGM, insulin, insulin pen needles, backup BGM with sufficient supplies including test strips, lancets, and EtOH swabs. Denies needs. Pt also has a thermometer and a cane at home. HHC/SNF/OP Tx: denies hx or needs Pt?s goal: home Plan: Home with pt once medically ready, anticipate no additional needs at this time. Per PT and OT, no additional therapy recommended. Pt states that he feels safe returning home with his at the time of DC and denies further needs now. Chyna Wadsworth RN, CM
--- NOTE | 2025-01-14 15:26 | PCM.CONS.GEN ---
Assessment & Plan Assessment/Plan (1) Sepsis: PLAN: Unclear cause. Will check head CT. Possible bug bite, will check Lyme. Cont vanc, change zosyn to ceftriaxone. Will follow, thank you, d/w nursing HPI Consult Data Date of Consult: 01/14/25 HPI Narrative Reason for Consultation: fever HPI Narrative: IBIS GREEN, is a 79 M with T2DM, no recent illnesses, presented after being found down in parking lot on 01/13/25. He does not remember what happened, was on ground for 5 minutes. Family noticed some mild fatigue and confusion in the day leading up to this. Denies chills, no sweats. No new focal symptoms. No headache or neck pain. Has had rash on R flank for a few weeks, no known bug bites but does spend time in [place]. Came to ED, admitted on vanc/zosyn, remains in icu with temps up to 105, feeling ok otherwise. Full ROS performed and neg except as noted above. [facility] Medical History Wears glasses Diabetes History of irregular heartbeat B12 deficiency CKD (chronic kidney disease), stage II Allergic rhinitis Neuropathy Hyperlipidemia Vitamin D deficiency Back pain Rosacea Home Medications ?Medication ?Instructions ?Recorded ?Last Taken ?Type metoprolol tartrate 25 mg tablet 25 mg PO BID htn 10/20/15 01/06/21 History atorvastatin 80 mg tablet 80 mg PO QHS cholesterol 12/18/20 12/30/20 History empagliflozin 25 mg tablet 25 mg PO QAM diabetes 12/18/20 01/06/21 History (Jardiance) glipizide 5 mg tablet 10 mg PO BIDAC diabetes 12/18/20 01/06/21 History lisinopril 20 1 tab PO DAILY htn 12/18/20 01/06/21 History mg-hydrochlorothiazide 12.5 mg tablet insulin glargine 100 unit/mL (3 18 unit subcut QHS diabetes 01/13/25 Unknown History mL) subcutaneous pen (Lantus Solostar U-100 Insulin) metformin 1,000 mg tablet 1,000 mg PO BID diabetes 01/13/25 Unknown History saw palm 160 mg-vit E 100 1 tab PO DAILY prostate 01/13/25 Unknown History unit-selen 100 tpw-ugjq-yqcunh-pygeum tablet (Prostate Health) Allergy/AdvReac Type Severity Reaction Status Date / Time No Known Allergies Allergy Verified 01/13/25 12:38 Family History Brother Diabetes Cancer CHF (congestive heart failure) Surgical History History of cholecystectomy History of colonoscopy (~05/2017) Social History (Updated 01/13/25 @ 15:[address] Ramsey Knight MD) household members: spouse Smoking Status: Never smoker Physical Exam Const alert, oriented x3 and no apparent distress General Appearance: cooperative HEENT normocephalic and head/scalp atraumatic Eyes PERRL and EOMs intact bilaterally Neck supple and No nodes Resp normal air movement and clear to auscultation bilaterally Cardio Rate: tachycardic GI soft to palpation, non-tender and non-distended Extremity General Extremity: Negative for edema Skin Skin Narrative: Face flushed. Raised warm redness on R flank. Some skin breakdown on upper back. Neuro CN's II-XII intact bilaterally Lab / Micro Data Attestation: I reviewed the patient's lab results. 01/14/25 05:00 01/14/25 05:00 Labs: Laboratory Results - last 24 hr 01/13/25 12:40: PT 14.9, INR 1.1, APTT 28.8, Total Creatine Kinase 104, Procalcitonin 0.22 H 01/13/25 18:10: Lactic Acid 3.3 H* 01/13/25 21:30: POC Glucose 140 H 01/14/25 05:00: WBC 8.3, RBC 4.50 L, Hgb 15.2, Hct 43.6, MCV 96.9 H, MCH 33.8 H, MCHC 34.9, RDW Std Deviation 45.1 H, RDW Coeff of Ty 12.7, Plt Count 62 L, MPV 10.7, Immature Gran % (Auto) 0.200, Neut % (Auto) 83.5 H, Lymph % (Auto) 7.8 L, [place] % (Auto) 8.1, Eos % (Auto) 0.0, Baso % (Auto) 0.4, Absolute Neuts (auto) 6.9, Absolute Lymphs (auto) 0.65 L, Nucleated RBC % 0, Sodium 136, Potassium 4.3, Chloride 104, Carbon Dioxide 15.2 L, Anion Gap 17 H, BUN 14, Creatinine 0.98, Estim Creat Clear Calc 64.42, Est GFR (MDRD) Non-Af 78, BUN/Creatinine Ratio 14.1, Glucose 129 H, Calcium 8.0, Magnesium 1.7, TSH 0.578 01/14/25 11:03: POC Glucose 153 H Micro: Microbiology 01/13/25 18:15 Mucosa - Nose SARS-CoV-2, Influenza & RSV (PCR) - Final Imaging Radiology Impression Chest/Abdomen/Pelvis CT 01/13/25 19:06 IMPRESSION: No acute process appreciated. Status post cholecystectomy Reading [facility]
[2025-01-14] MEDS: Ceftriaxone 2 GM in 0.9% Normal Saline (50mL MB+) 50 ML IV (16:03)
[2025-01-14] MEDS: Insulin Glargine-YFGN 100 UNIT/ML Pen 10 UNIT SC (20:25)
[2025-01-14] MEDS: 0.9% Saline Lock 10 ML Syringe IV (21:48)
[2025-01-15] VITALS (19 sets, daily range): BP systolic 96–140; BP diastolic 57–84; PULSE 57–95; RESP 14–28; TEMP 36.9–38.8; O2SAT 94–100; BMI 29.1
[2025-01-15 06:37] LABS: Hematocrit 40.0 % (40-54); Hemoglobin 13.8 g/dL (13.0-16.5); Immature Granulocytes Count 0.020 X10^3/uL (0.0-0.0); Mean Corp Hgb Conc 34.5 g/dL (32-36); Mean Corpuscular Volume 96.2 fL (80-94); Mean Platelet Vol. 10.1 fl (6.2-12.0); NRBC Flagged by Analyzer 0 % (0-5); POSITIVE COUNT YES; POSITIVE DIFFERENTIAL YES; Platelet Count 62 K/mm3 (150-450); RBC Distribution Width CV 12.6 % (11.6-14.6); RBC Distribution Width SD 44.9 fl (35.1-43.9); Red Blood Count 4.16 M/mm3 (4.6-6.2); White Blood Count 4.5 K/mm3 (4.4-11.0)
[2025-01-15 07:11] LABS: Anion Gap 9 (5-15); BUN 18 mg/dL (4-19); BUN/Creat Ratio 19.1 RATIO (10-20); Calcium,Total 7.7 mg/dL (7.6-11.0); Carbon Dioxide 23.3 mmol/L (21.0-32.0); Chloride 103 mmol/L (98-108); Estimated Creatinine Clearance 68.32 ml/min (50-250); Glucose 125 mg/dL (70-99); Potassium 3.7 mmol/L (3.3-5.1)
[2025-01-15 07:13] LABS: Vancomycin, Trough Level 6.1 ug/mL (5.0-15.0)
--- NOTE | 2025-01-15 07:15 | PN.HOSP_ITS ---
Reason for Visit Reason for Visit: Diagnoses Sepsis, unspecified organism (01/13/25) Acidosis, unspecified (01/13/25) Fever, unspecified (01/13/25) Subjective Subjective Feeling better. Fevers better. Objective Data Objective Data Vital Signs: Vital Signs Temp Pulse Resp BP Pulse Ox O2 Del Method 37.2 C 58 L 20 H 100/59 L 94 Room Air 01/15/25 06:00 01/15/25 06:00 01/15/25 06:00 01/15/25 06:00 01/15/25 06:00 01/15/25 06:00 Oxygen Delivery Method Room Air Weight: 86.9 kg Body Mass Index (BMI) 29.1 Intake & Output: Intake and Output for Last 24 Hours 01/13/25 01/14/25 01/15/25 23:59 23:59 23:59 Intake Total 3640 / 3640 4159.5 / 4159.5 Output Total 1500 / 1500 3850 / 3850 450 / 450 Balance 2140 / 2140 309.5 / 309.5 -450 / -450 Lab / Micro Data 01/15/25 06:10 01/15/25 06:10 Labs: Laboratory Results - last 24 hr 01/14/25 11:03: POC Glucose 153 H 01/14/25 16:08: POC Glucose 151 H 01/14/25 20:24: POC Glucose 191 H 01/15/25 06:10: WBC 4.5, RBC 4.16 L, Hgb 13.8, Hct 40.0, MCV 96.2 H, MCH 33.2 H, MCHC 34.5, RDW Std Deviation 44.9 H, RDW Coeff of Ty 12.6, Plt Count 62 L, MPV 10.1, Immature Gran % (Auto) 0.400, Neut % (Auto) 82.0 H, Lymph % (Auto) 9.3 L, [place] % (Auto) 7.5, Eos % (Auto) 0.4, Baso % (Auto) 0.4, Absolute Neuts (auto) 3.7, Absolute Lymphs (auto) 0.42 L, Nucleated RBC % 0, Sodium 135, Potassium 3.7, Chloride 103, Carbon Dioxide 23.3, Anion Gap 9, BUN 18, Creatinine 0.94, Estim Creat Clear Calc 68.32, Est GFR (MDRD) Non-Af 83, BUN/Creatinine Ratio 19.1, Glucose 125 H, Calcium 7.7, Vancomycin Trough 6.1 Micro: Microbiology 01/13/25 18:15 Mucosa - Nose SARS-CoV-2, Influenza & RSV (PCR) - Final Radiography Diagnostic Testing: Radiology Impression Chest/Abdomen/Pelvis CT 01/13/25 19:06 IMPRESSION: No acute process appreciated. Status post cholecystectomy Reading Location: [facility] Brain CT 01/14/25 13:43 IMPRESSION: CHRONIC CHANGES. NO ACUTE FINDINGS. Reading Location: [facility] Physical Exam Const alert and no apparent distress HEENT head/scalp atraumatic and moist oral mucous membranes Resp normal respiratory effort, no retractions, no use of accessory muscles and clear to auscultation bilaterally Cardio regular rate, regular rhythm, S1 normal heart sound and S2 normal heart sound GI normal to inspection, nondistended, normoactive bowel sounds, soft to palpation, non-tender and non-distended Skin Skin Narrative: legion on back w/o fluctuance/discharge. Neuro Sensorium / Orientation: awake and alert Assessment & Plan Assessment/Plan (1) Sepsis: PLAN: POA. See H+P for criteria. Unclear source at this time. CT C/A/P negative. UA negative. BCx pending. COVID/Influenza/RSV negative. Lyme screen. on CTX. (2) Metabolic acidosis: PLAN: resolved positive anion gap and low carbon dioxide add bicarbonate gtt for 1 liter. PLAN: Plan Chronic conditions: * DM2: on glargine and SSI. * HTN: lisinopril/HCTZ held. VTE prophylaxis: LMWH Charges/Coding Visit Charges Inpatient E&M: 98955 Subs Hosp L2
--- NOTE | 2025-01-15 07:54 | PCM.RX.CS ---
Consult Antibiotic Management Pharmacy has been consulted to manage selected antibiotic: Vancomycin Type of Intervention Type of Consult: Follow-up Suspected Infection Suspected Infection: Sepsis Labs Labs: Sodium 135 mmol/L (133-145) 01/15/25 06:10 Potassium 3.7 mmol/L (3.3-5.1) 01/15/25 06:10 Chloride 103 mmol/L (98-108) 01/15/25 06:10 Carbon Dioxide 23.3 mmol/L (21.0-32.0) 01/15/25 06:10 Anion Gap 9 (5-15) 01/15/25 06:10 BUN 18 mg/dL (4-19) 01/15/25 06:10 Creatinine 0.94 mg/dL (0.70-1.20) 01/15/25 06:10 Est GFR (MDRD) Non-Af 83 (>60) 01/15/25 06:10 BUN/Creatinine Ratio 19.1 RATIO (10-20) 01/15/25 06:10 Glucose 125 mg/dL (70-99) H 01/15/25 06:10 Vancomycin Trough 6.1 ug/mL (5.0-15.0) 01/15/25 06:10 Microbiology Microbiology: Microbiology 01/13/25 18:15 Mucosa - Nose SARS-CoV-2, Influenza & RSV (PCR) - Final Goal Trough Goal Trough: 15-20 mcg/mL Pharmacy Plan for Drug Dosing Pharmacy Plan for Drug Dosing: VANCOMYCIN LEVEL RECEIVED Current Vancomycin Dose: 750mg Q12H Number of Doses Received: 750mg x2, 2000mg x1 Vancomycin Level: 6.1 Hours Since Last Dose: 10 Renal Function: sCr 0.94 Renal Function Trend: improved since admission Lab/Micro: blood cx pending Vancomycin Plan/Comments: Increase Vancomycin dosing regimen to 1250mg Q12H Pending Level: 01/16/25 @ 20:00 Pharmacy Service will continue to monitor and adjust dosing as required. Follow-Up Labs Follow-Up Labs: Trough: Vancomycin (01/16/25 @ 20:00)
[2025-01-15] MEDS: Vancomycin HCl 1,250 MG in 0.9% Normal Saline (250mL Bag) 250 ML 167 MG IV (08:10)
--- NOTE | 2025-01-15 10:27 | PCM.PN.ID ---
Physical Exam Narrative Feeling better, fever improved, no n/v/d. Const alert and no apparent distress Resp normal air movement and clear to auscultation bilaterally Cardio regular rate and regular rhythm GI soft to palpation, non-tender and non-distended Skin Skin Narrative: R flank area of redness ID ID: Route of nutrition/ use of supplements: [] Nutritional Intake: [] IV Site: [] Crisostomo Catheter: [] Assessment & Plan Assessment/Plan (1) Sepsis: PLAN: Unclear cause. Possible bug bite, pending Lyme. Will stop vanc, cont ceftriaxone. Fever improved. Feeling better. Will follow
[2025-01-15] MEDS: Ceftriaxone 2 GM in 0.9% Normal Saline (50mL MB+) 50 ML IV (10:33)
[2025-01-15 14:08] LABS: Lyme Scn Total Ab w/Rflx Negative (Negative)
[2025-01-15 18:02] LABS: Mucous, Urine 0 SEEN /hpf (<or=2+)
[2025-01-15 18:15] LABS: Color, Urine Yellow (Yellow); Glucose, Dipstick 1000 mg/dl (Normal); Ketone-Dipstick 15 mg/dl (Negative); Leukocyte Esterase-Dipstick Negative /ul (Negative); Nitrite-Dipstick Negative (Negative); Occult Blood-Urine 250 /ul (Negative); Protein-Dipstick 30 mg/dl (Negative); Specific Gravity, Urine 1.010 (1.002-1.030); Urine Bilirubin Dipstick Negative (Negative)
[2025-01-15 18:41] LABS: Red Blood Cells-Urine 50-100 SEEN /hpf (0-5)
[2025-01-15 18:42] LABS: Squamous Epithelial Cells - UA 0-5 SEEN /hpf (0-5)
[2025-01-15] MEDS: Insulin Glargine-YFGN 100 UNIT/ML Pen 10 UNIT SC (21:03)
[2025-01-16 02:00] VITALS: BP 103/64; PULSE 58; RESP 16; TEMP 36.4; O2SAT 94
[2025-01-16 05:28] VITALS: BMI 28.5
[2025-01-16 06:40] LABS: Hematocrit 37.6 % (40-54); Hemoglobin 13.2 g/dL (13.0-16.5); Immature Granulocytes Count 0.020 X10^3/uL (0.0-0.0); Mean Corp Hgb Conc 35.1 g/dL (32-36); Mean Corpuscular Volume 94.9 fL (80-94); Mean Platelet Vol. 11.4 fl (6.2-12.0); NRBC Flagged by Analyzer 0 % (0-5); POSITIVE COUNT YES; Platelet Count 72 K/mm3 (150-450); RBC Distribution Width CV 12.7 % (11.6-14.6); RBC Distribution Width SD 44.3 fl (35.1-43.9); Red Blood Count 3.96 M/mm3 (4.6-6.2); White Blood Count 3.8 K/mm3 (4.4-11.0)
[2025-01-16 07:00] LABS: Anion Gap 11 (5-15); BUN 18 mg/dL (4-19); BUN/Creat Ratio 22.1 RATIO (10-20); Calcium,Total 7.9 mg/dL (7.6-11.0); Carbon Dioxide 21.5 mmol/L (21.0-32.0); Chloride 105 mmol/L (98-108); Estimated Creatinine Clearance 77.61 ml/min (50-250); Glucose 140 mg/dL (70-99); Potassium 3.2 mmol/L (3.3-5.1)
--- NOTE | 2025-01-16 07:24 | PN.HOSP_ITS ---
Reason for Visit Reason for Visit: Diagnoses Sepsis, unspecified organism (01/13/25) Acidosis, unspecified (01/13/25) Fever, unspecified (01/13/25) Subjective Subjective Feeling better. No new events. Objective Data Objective Data Vital Signs: Vital Signs Temp Pulse Resp BP Pulse Ox O2 Del Method 36.4 C L 58 L 16 103/64 94 Room Air 01/16/25 02:00 01/16/25 02:00 01/16/25 02:00 01/16/25 02:00 01/16/25 02:00 01/16/25 02:00 Oxygen Delivery Method Room Air Weight: 85.2 kg Body Mass Index (BMI) 28.5 Intake & Output: Intake and Output for Last 24 Hours 01/14/25 01/15/25 01/16/25 23:59 23:59 23:59 Intake Total 4159.5 / 4159.5 325 / 325 Output Total 3850 / 3850 1400 / 2400 1600 / 1600 Balance 309.5 / 309.5 -1075 / -2075 -1600 / -1600 Lab / Micro Data 01/16/25 05:31 01/16/25 05:31 Labs: Laboratory Results - last 24 hr 01/14/25 14:35: Lyme Total Antibody Negative 01/15/25 07:56: POC Glucose 124 H 01/15/25 11:20: POC Glucose 139 H 01/15/25 17:45: Urine Color Yellow, Urine Clarity Sl. Cloudy, Urine pH 7.0, Ur Specific [place] 1.010, Urine Protein 30 H, Urine Glucose (UA) 1000 H, Urine Ketones 15 H, Urine Occult Blood 250 H, Urine Nitrite Negative, Urine Bilirubin Negative, Urine Urobilinogen 1 H, Ur Leukocyte Esterase Negative, Urine RBC 50- 100 SEEN, Urine WBC 0-5 SEEN, Ur Squamous Epith Cells 0-5 SEEN, Urine Bacteria 0 SEEN, Urine Mucus 0 SEEN 01/15/25 21:01: POC Glucose 171 H 01/16/25 05:31: WBC 3.8 L, RBC 3.96 L, Hgb 13.2, Hct 37.6 L, MCV 94.9 H, MCH 33.3 H, MCHC 35.1, RDW Std Deviation 44.3 H, RDW Coeff of Ty 12.7, Plt Count 72 L, MPV 11.4, Immature Gran % (Auto) 0.500, Neut % (Auto) 58.1, Lymph % (Auto) 25.8, [place] % (Auto) 11.5 H, Eos % (Auto) 3.1, Baso % (Auto) 1.0, Absolute Neuts (auto) 2.2, Absolute Lymphs (auto) 0.99, Nucleated RBC % 0, Sodium 138, P otassium 3.2 L, Chloride 105, Carbon Dioxide 21.5, Anion Gap 11, BUN 18, Creatinine 0.82, Estim Creat Clear Calc 77.61, Est GFR (MDRD) Non-Af 89, B UN/Creatinine Ratio 22.1 H, Glucose 140 H, Calcium 7.9 01/16/25 06:10: POC Glucose 146 H Micro: Microbiology 01/13/25 18:15 Mucosa - Nose SARS-CoV-2, Influenza & RSV (PCR) - Final Physical Exam Const alert and no apparent distress HEENT head/scalp atraumatic and moist oral mucous membranes Resp normal respiratory effort, no retractions, no use of accessory muscles and clear to auscultation bilaterally Cardio regular rate, regular rhythm, S1 normal heart sound and S2 normal heart sound GI normal to inspection, nondistended, normoactive bowel sounds, soft to palpation, non-tender and non-distended Extremity normal to inspection and full ROM Skin Skin Narrative: fading right lower back lesion. Neuro Sensorium / Orientation: awake and alert Assessment & Plan Assessment/Plan (1) Sepsis: PLAN: POA. See H+P for criteria. Unclear source at this time, though concerning it could be localized cellulitis on right lower back. CT C/A/P negative. UA negative. BCx pending. COVID/Influenza/RSV negative. Lyme Ab negative. on CTX. (2) Metabolic acidosis: PLAN: resolved positive anion gap and low carbon dioxide PLAN: Plan Chronic conditions: * DM2: stable. on glargine and SSI. * HTN: lisinopril/HCTZ held. VTE prophylaxis: LMWH DW family at bedside. Charges/Coding Visit Charges Inpatient E&M: 43779 Subs Hosp L2
[2025-01-16 09:25] VITALS: BP 122/66; PULSE 62; RESP 16; TEMP 37.2; O2SAT 98
[2025-01-16] MEDS: Ceftriaxone 2 GM in 0.9% Normal Saline (50mL MB+) 50 ML IV (11:43)
--- NOTE | 2025-01-16 13:24 | PCM.PN.ID ---
Physical Exam Narrative Feeling better, less fever overnight. No n/v/d. No cough. Const alert and no apparent distress General Appearance: cooperative Resp normal air movement and clear to auscultation bilaterally Cardio regular rate and regular rhythm GI soft to palpation, non-tender and non-distended Skin Skin Narrative: no new rash ID ID: Route of nutrition/ use of supplements: [] Nutritional Intake: [] IV Site: [] Crisostomo Catheter: [] Assessment & Plan Assessment/Plan (1) Sepsis: PLAN: Unclear cause. Possible bug bite, neg Lyme. Cont ceftriaxone. Fever cont to be improved. Feeling better. Will follow
[2025-01-16 13:58] VITALS: BP 125/67; PULSE 68; RESP 16; TEMP 36.9; O2SAT 98
[2025-01-16 20:00] VITALS: BP 139/79; PULSE 66; RESP 16; TEMP 36.9; O2SAT 100
[2025-01-16] MEDS: Insulin Glargine-YFGN 100 UNIT/ML Pen 10 UNIT SC (21:21)
[2025-01-17 02:00] VITALS: BP 120/65; PULSE 62; RESP 16; TEMP 37; O2SAT 97
[2025-01-17 05:53] VITALS: BMI 28.3
[2025-01-17 06:08] LABS: Hematocrit 37.6 % (40-54); Hemoglobin 13.2 g/dL (13.0-16.5); Immature Granulocytes Count 0.020 X10^3/uL (0.0-0.0); Mean Corp Hgb Conc 35.1 g/dL (32-36); Mean Corpuscular Volume 94.9 fL (80-94); Mean Platelet Vol. 10.8 fl (6.2-12.0); NRBC Flagged by Analyzer 0 % (0-5); POSITIVE COUNT YES; POSITIVE MORPHOLOGY YES; Platelet Count 72 K/mm3 (150-450); RBC Distribution Width CV 12.5 % (11.6-14.6); RBC Distribution Width SD 43.8 fl (35.1-43.9); Red Blood Count 3.96 M/mm3 (4.6-6.2); White Blood Count 3.8 K/mm3 (4.4-11.0)
[2025-01-17 06:24] LABS: Differential Indicated SCAN CRITERIA MET
[2025-01-17 07:12] LABS: Differential Comment SCANNED; Red Cell Morphology NORM C+C NORMAL (NORM C&C)
[2025-01-17 07:33] LABS: Anion Gap 11 (5-15); BUN 14 mg/dL (4-19); BUN/Creat Ratio 18.3 RATIO (10-20); Calcium,Total 8.2 mg/dL (7.6-11.0); Carbon Dioxide 21.8 mmol/L (21.0-32.0); Chloride 106 mmol/L (98-108); Estimated Creatinine Clearance 79.30 ml/min (50-250); Glucose 139 mg/dL (70-99); Potassium 3.4 mmol/L (3.3-5.1)
--- NOTE | 2025-01-17 07:43 | PN.HOSP_ITS ---
Reason for Visit Reason for Visit: Diagnoses Sepsis, unspecified organism (01/13/25) Acidosis, unspecified (01/13/25) Fever, unspecified (01/13/25) Subjective Subjective Feeling well. No new events. Objective Data Objective Data Vital Signs: Vital Signs Temp Pulse Resp BP Pulse Ox O2 Del Method 37.0 C 62 16 120/65 97 Room Air 01/17/25 02:00 01/17/25 02:00 01/17/25 02:00 01/17/25 02:00 01/17/25 02:00 01/17/25 02:00 Oxygen Delivery Method Room Air Weight: 84.6 kg Body Mass Index (BMI) 28.3 Intake & Output: Intake and Output for Last 24 Hours 01/15/25 01/16/25 01/17/25 23:59 23:59 23:59 Intake Total 325 / 325 50 / 50 Output Total 1400 / 2400 2450 / 2450 Balance -1075 / -2075 -2400 / -2400 Lab / Micro Data 01/17/25 05:11 01/17/25 05:11 Labs: Laboratory Results - last 24 hr 01/16/25 11:12: POC Glucose 191 H 01/16/25 16:18: POC Glucose 197 H 01/16/25 21:19: POC Glucose 163 H 01/17/25 05:11: WBC 3.8 L, RBC 3.96 L, Hgb 13.2, Hct 37.6 L, MCV 94.9 H, MCH 33.3 H, MCHC 35.1, RDW Std Deviation 43.8, RDW Coeff of Ty 12.5, Plt Count 72 L , MPV 10.8, Immature Gran % (Auto) 0.500, Neut % (Auto) 52.8, Lymph % (Auto) 32.9, [place] % (Auto) 12.0 H, Eos % (Auto) 1.3, Baso % (Auto) 0.5, Absolute Neuts (auto) 2.0, Absolute Lymphs (auto) 1.26, Nucleated RBC % 0, Differential Comment SCANNED, Platelet Estimate MOD DEC, RBC Morphology NORM C+C, Sodium 139, Potassium 3.4, Chloride 106, Carbon Dioxide 21.8, Anion Gap 11, BUN 14, Creatinine 0.78, Estim Creat Clear Calc 79.30, Est GFR (MDRD) Non-Af 91, BUN/Creatinine Ratio 18.3, Glucose 139 H, Calcium 8.2 01/17/25 06:17: POC Glucose 156 H Micro: Microbiology 01/13/25 21:35 Mucosa - Nasopharyngeal Respiratory Panel (PCR) - Final 01/13/25 18:15 Mucosa - Nose SARS-CoV-2, Influenza & RSV (PCR) - Final Physical Exam Const alert HEENT head/scalp atraumatic and moist oral mucous membranes Skin Skin Narrative: Improving erythema of the right lower back lesion. Neuro Neuro Narrative: Normal gait. Assessment & Plan Assessment/Plan (1) Sepsis: PLAN: POA. See H+P for criteria. Unclear source at this time, though concerning it could be localized cellulitis on right lower back. CT C/A/P negative. UA negative. BCx negative. COVID/Influenza/RSV negative. Lyme Ab negative. on CTX. Infectious workup has been negative. Likely source of infection is his right lower back lesion. This is most likely cellulitis. Has overall improved. Discussed with Dr. Christopher who recommends 3 more days of Augmentin. (2) Metabolic acidosis: PLAN: resolved positive anion gap and low carbon dioxide PLAN: Plan Chronic conditions: * DM2: stable. on glargine and SSI. * HTN: lisinopril/HCTZ held. VTE prophylaxis: LMWH
[2025-01-17 10:09] VITALS: BP 129/82; PULSE 64; RESP 16; TEMP 36.6; O2SAT 99
[2025-01-17] MEDS: Ceftriaxone 2 GM in 0.9% Normal Saline (50mL MB+) 50 ML IV (10:19)
--- NOTE | 2025-01-17 10:50 | DS.PCM_ITS ---
Providers Date of Admission: 01/13/25 Primary Care Physician: [facility] Consultations 01/13/25 20:51 Consult: Infectious Disease Routine Consulting Provider: Harlan Christopher Reason for Consult: febrile up to 104.9, suspect sepsis? unclear source EMERGENT Consult: No MD Notified: Yes Date Notified: 01/13/25 Time Notified: 20:52 Method of Notification: Text Reason For Visit: SIGNIFICANT FEVER Diagnosis Discharge Diagnosis (1) Sepsis: Status: Acute Code(s): A41.9 - Sepsis, unspecified organism Plan: POA. See H+P for criteria. Unclear source at this time, though concerning it could be localized cellulitis on right lower back. CT C/A/P negative. UA negative. BCx negative. COVID/Influenza/RSV negative. Lyme Ab negative. on CTX. Infectious workup has been negative. Likely source of infection is his right lower back lesion. This is most likely cellulitis. Has overall improved. Discussed with Dr. Christopher who recommends 3 more days of Augmentin. (2) Metabolic acidosis: Status: Acute Code(s): E87.20 - Acidosis, unspecified Plan: resolved positive anion gap and low carbon dioxide Plan Chronic conditions: * DM2: stable. on glargine and SSI. * HTN: lisinopril/HCTZ held. VTE prophylaxis: LMWH Medications at Discharge Home Medications metoprolol tartrate 25 mg tablet 25 mg PO BID htn 10/20/15 atorvastatin 80 mg tablet 80 mg PO QHS cholesterol 12/18/20 empagliflozin 25 mg tablet (Jardiance) 25 mg PO QAM diabetes 12/18/20 glipizide 5 mg tablet 10 mg PO BIDAC diabetes 12/18/20 lisinopril 20 mg-hydrochlorothiazide 12.5 mg tablet 1 tab PO DAILY htn 12/18/20 insulin glargine 100 unit/mL (3 mL) subcutaneous pen (Lantus Solostar U-100 Insulin) 18 unit subcut QHS diabetes 01/13/25 metformin 1,000 mg tablet 1,000 mg PO BID diabetes 01/13/25 Held on 01/17/25. Instructions: Resume on 01/18/25. saw palm 160 mg-vit E 100 unit-selen 100 dyz-xwmc-qcctmo-pygeum tablet (Prostate EndPlay) 1 tab PO DAILY prostate 01/13/25 amoxicillin 875 mg-potassium clavulanate 125 mg tablet 1 tab PO Q12H #6 tabs 01/17/25 Hospital Course Operations None Procedures None Summary of Care Provided Minutes Spent on Discharge: 40 Hospital Course: Patient presents with sepsis and extremely high temperatures of greater than 104 ?F. Patient underwent an infectious workup that all came back negative. Though patient did subsequent develop a lesion in his right lower back that look like a very large bull's-eye. I did have Lyme studies that were negative. The lesion actually seems more consistent with cellulitis and has improved with antibiotics. Patient's fevers have overall trended down and has been afebrile greater than 24 hours. Patient be discharged with 3 more days of Augmentin. Weight / BMI Weight Weight: 84.6 kg Body Mass Index (BMI) 28.3 ABG / Lab / Microbiology Data 01/17/25 05:11 01/17/25 05:11 Laboratory: Laboratory Results - last 24 hr 01/16/25 11:12: POC Glucose 191 H 01/16/25 16:18: POC Glucose 197 H 01/16/25 21:19: POC Glucose 163 H 01/17/25 05:11: WBC 3.8 L, RBC 3.96 L, Hgb 13.2, Hct 37.6 L, MCV 94.9 H, MCH 33.3 H, MCHC 35.1, RDW Std Deviation 43.8, RDW Coeff of Ty 12.5, Plt Count 72 L , MPV 10.8, Immature Gran % (Auto) 0.500, Neut % (Auto) 52.8, Lymph % (Auto) 32.9, [place] % (Auto) 12.0 H, Eos % (Auto) 1.3, Baso % (Auto) 0.5, Absolute Neuts (auto) 2.0, Absolute Lymphs (auto) 1.26, Nucleated RBC % 0, Differential Comment SCANNED, Platelet Estimate MOD DEC, RBC Morphology NORM C+C, Sodium 139, Potassium 3.4, Chloride 106, Carbon Dioxide 21.8, Anion Gap 11, BUN 14, Creatinine 0.78, Estim Creat Clear Calc 79.30, Est GFR (MDRD) Non-Af 91, BUN/Creatinine Ratio 18.3, Glucose 139 H, Calcium 8.2 01/17/25 06:17: POC Glucose 156 H Microbiology: Microbiology 01/15/25 17:45 Urine Catheter - Crisostomo Urine Culture - Preliminary Culture exhibits no growth. 01/13/25 21:35 Mucosa - Nasopharyngeal Respiratory Panel (PCR) - Final 01/13/25 18:15 Mucosa - Nose SARS-CoV-2, Influenza & RSV (PCR) - Final D/C Instructions Discharge Diet: No restrictions DC O2, CPAP, BIPAP Needs Home O2 Discharge instructions: No Meaningful Use Info Meaningful Use Meaningful Use Diagnoses (Choose all that apply): None applicable Ischemic Stroke Statin Dosing Therapy Reference: STATIN DOSE THERAPY REFERENCE: * Patients > 75 years receive moderate or high dose statin therapy. * Patients 75 years or YOUNGER should receive HIGH intensity statin dose unless contraindicated. You will be required to document reason for non-treatment if statin daily dose does not meet guidelines. HIGH DOSE STATIN THERAPY DAILY Atorvastatin > than or = to 40 mg Rosuvastatin > than or = to 20 mg Amlodipine + Atorvastatin > than or = to 2.5/40 mg Ezetimibe + Simvastatin 10/80 mg Simvastatin 80mg Discharge Plan Admission Admit Date/Time: 01/13/25 19:20 Primary Reason for Your Visit: Cellulitis. Attending Provider: Jhonathan Wilkes Primary Care Provider: [place], [place] Consulting Providers: Lizzette Anthony; Harlan Christopher Instructions Additional Instructions / Restrictions: You had very high temperatures from what appears to be cellulitis (skin infection) on your right lower back. Overall that is improving. You have 3 more days of Augmentin. If you notice any changes regards to recurrent fevers or worsening pain in that area of the infection, notify your physician or return to the emergency room. Discharge Orders/Prescriptions Prescriptions: New amoxicillin-pot clavulanate 875-125 mg tablet 1 tab PO Q12H Qty: 6 0RF Rx Instructions: start on the morning of 01/18. Continued Jardiance 25 mg tablet 25 mg PO QAM lisinopril-hydrochlorothiazide 20-12.5 mg tablet 1 tab PO DAILY atorvastatin 80 mg tablet 80 mg PO QHS metoprolol tartrate 25 MG tablet 25 mg PO BID glipizide 5 mg tablet 10 mg PO BIDAC insulin glargine [Lantus Solostar U-100 Insulin] 100 unit/mL (3 mL) insulin pen 18 unit subcut QHS Prostate Health 160-100-100 mg-unit-mcg tablet 1 tab PO DAILY Held metformin 1,000 mg tablet 1,000 mg PO BID Hold Instructions: Resume on 01/18/25. Referrals / [facility] [Primary Care Provider[facility] - Within 2 Weeks Disposition Disposition (needs filled in before D/C Order can be placed): Home, Self Care Charges/Coding Visit Charges Inpatient E&M: 44038 Disch Hosp >30min
== END 2025-01-17 12:32 | disposition home or self-care (01) | DRG 872 ==
LOC: ED 19:15 → ICU 19:23 → MS3 01-15 18:27
PROVIDERS: Internal Medicine Infectious Disease; Admitting Provider Internal Medicine; Emergency Provider Emergency Medicine
DX: A41.9 Sepsis, unspecified organism (principal); E87.20 Acidosis, unspecified; L03.312 Cellulitis of back [any part except buttock and flank]; E11.40 Type 2 diabetes mellitus with diabetic neuropathy, unspecified; I10 Essential (primary) hypertension; D69.6 Thrombocytopenia, unspecified; E78.5 Hyperlipidemia, unspecified; I44.4 Left anterior fascicular block; E11.65 Type 2 diabetes mellitus with hyperglycemia; Z79.4 Long term (current) use of insulin; Z79.899 Other long term (current) drug therapy; Z79.84 Long term (current) use of oral hypoglycemic drugs; Z90.49 Acquired absence of other specified parts of digestive tract
CPT/HCPCS: 36415; 51702; 70450; 71046; 71260; 74177; 80048; 80202; 81001; 81002; 82550; 82962; 83605; 83735; 84145; 84443; 85025; 85610; 85730; 86618; 87040; 87086; 87631; 87633; 93005; 94762; 97116; 97162; 97166; 97530; 99285; Q9967; A4216; J0696

== ENCOUNTER → 2025-01-25 | Outpatient (CLI) | payer MEDICARE, SELFPAY ==
[2025-01-28 16:09] LABS: V-Zoster IgG (Immunity) Reactive (Non Reactive); V-Zoster Virus Acute IgM < 0.91 index (0.00-0.90)
== END | disposition home or self-care (01) ==
PROVIDERS: Referring Provider Physician Assistant; Visit Provider Physician Assistant
DX: L30.9 Dermatitis, unspecified (principal)
CPT/HCPCS: 36415; 86787

== ENCOUNTER → 2025-05-27 | Outpatient (CLI) | payer OTHER, SELFPAY ==
--- NOTE | 2025-05-27 14:55 | MRI_ITS ---
PROCEDURE: MRI ABD WITH AND W/O CONTRAST 05/27/2025 REASON FOR EXAM: NONALCOHOLIC STEATOHEPATITIS TECHNIQUE: Procedure Code: [id number] Modality: MR Procedure: MRI ABD WITH AND W/O CONTRAST Multiplanar and multisequence images were obtained. CONTRAST: [place] VOLUME: 17 mL COMPARISON: CT January 2025 FINDINGS: Liver: Slight fatty infiltration of the liver. Relatively homogeneous enhancement of the liver. No focal mass or lesions. On the diffusion-weighted images no evidence of restricted diffusion within the liver parenchyma. Hepatic and portal vessels are patent. Biliary: Previous cholecystectomy. No evidence of intrahepatic or extrahepatic ductal dilatation. Dedicated MRCP images show common bile duct of a proximally 6 mm. No evidence of pancreatic ductal dilatation either. Mild pancreatic atrophy. Pancreas: Mild atrophy. No focal mass or lesion. Spleen: Negative Adrenals: In and out of phase images of the adrenal glands negative. No focal lesions. Kidneys: Simple cyst arising from the left kidney measures 4.1 by 3.8 cm. No nodular component or concerning component. Remainder of the kidneys negative. Peritoneum / Retroperitoneum: No free fluid. Lymph Nodes: No evidence of intra-abdominal adenopathy. Major Vessels: Aorta and major vessels negative. Bones: Bone marrow signal negative. MRI/MRI Abd WITH and W/O Contrast IMPRESSION: Cholecystectomy. Slight fatty infiltration liver but no liver mass. Simple left renal cyst Reading Location: [place] [id number]
== END | disposition home or self-care (01) ==
LOC: MRI 14:36
PROVIDERS: Referring Provider Nurse Practitioner Adult Health; Visit Provider Nurse Practitioner Adult Health
DX: K75.81 Nonalcoholic steatohepatitis (NASH) (principal)
CPT/HCPCS: 74183; A9575; A4216